=== PATIENT | male | born 1955 | race Caucasian/White ===

== ENCOUNTER 2021-09-13 07:42 | Outpatient (CLI) | payer BC, SELFPAY ==
[2021-09-13 11:26] LABS: Albumin* 4.1 g/dL (3.3-5.0); Chloride* 105 mmol/L (96-114); Potassium* 4.3 mmol/L (3.6-5.1); Sodium* 139 mmol/L (135-149)
[2021-09-13 11:28] LABS: Bilirubin Total* 0.5 mg/dL (0.1-1.5); Carbon Dioxide* 26 mmol/L (20-32); Cholesterol* 138 mg/dL (90-199); Creatinine* 1.1 mg/dL (0.5-1.5); Estimated Glomerular Filt Rate 74 ml/min
[2021-09-13 11:29] LABS: Alanine Aminotransferase* 14 U/L (4-50); Alkaline Phosphatase* 110 U/L (40-150); Aspartate Amino Transferase* 19 U/L (12-35); Blood Urea Nitrogen* 24 mg/dL (7-30); Calcium* 9.2 mg/dL (8.4-10.6); Glucose* 95 mg/dL (60-115); Total Protein* 6.8 g/dL (6.0-8.3); Triglycerides* 97 mg/dL (40-149)
[2021-09-13 11:30] LABS: HDL Cholesterol* 39 mg/dL (>=40)
[2021-09-13 11:40] LABS: LDL Cholesterol Calculated 80 mg/dL (<100)
[2021-09-13 12:00] LABS: PSA Screen* 3.45 ng/mL (0.10-4.00)
== END 2021-09-13 07:43 | disposition home or self-care (01) ==
LOC: NFLDREF 07:43
PROVIDERS: PCP Internal Medicine; Visit Provider Internal Medicine
DX: Z00.00 Encounter for general adult medical examination without abnormal findings (principal); D64.9 Anemia, unspecified; Z12.5 Encounter for screening for malignant neoplasm of prostate; Z13.6 Encounter for screening for cardiovascular disorders
CPT/HCPCS: 80053; 80061; 84153

== ENCOUNTER 2022-02-14 08:48 | Outpatient (CLI) | payer MEDICARE, BC, SELFPAY ==
[2022-02-14 12:36] LABS: Albumin* 4.3 g/dL (3.3-5.0); Chloride* 108 mmol/L (96-114)
[2022-02-14 12:37] LABS: Potassium* 4.1 mmol/L (3.6-5.1); Sodium* 143 mmol/L (135-149)
[2022-02-14 12:39] LABS: Aspartate Amino Transferase* 21 U/L (12-35); Bilirubin Total* 0.6 mg/dL (0.1-1.5); Carbon Dioxide* 29 mmol/L (20-32); Creatinine* 0.9 mg/dL (0.5-1.5); Estimated Glomerular Filt Rate 93 ml/min
[2022-02-14 12:40] LABS: Alanine Aminotransferase* 22 U/L (4-50); Alkaline Phosphatase* 90 U/L (40-150); Blood Urea Nitrogen* 17 mg/dL (7-30); Calcium* 9.7 mg/dL (8.4-10.6); Glucose* 86 mg/dL (60-115)
[2022-02-14 13:11] LABS: PSA Screen* 3.52 ng/mL (0.10-4.00)
== END 2022-02-14 08:49 | disposition home or self-care (01) ==
PROVIDERS: PCP Internal Medicine; Visit Provider Internal Medicine
DX: D64.9 Anemia, unspecified (principal); Z12.5 Encounter for screening for malignant neoplasm of prostate
CPT/HCPCS: 80053; 84153

== ENCOUNTER 2022-04-20 14:45 | Outpatient (CLI) | payer MEDICARE, BC, SELFPAY | END 2022-04-20 14:46 | disposition home or self-care (01) | LOC: NFLDREF 14:46 | PROVIDERS: PCP Internal Medicine; Visit Provider Internal Medicine | DX: D64.9 Anemia, unspecified (principal) | CPT/HCPCS: 82607; 82728; 83540; 83550; 85045 ==

== ENCOUNTER 2022-08-26 08:56 | Outpatient (CLI) | payer MEDICARE, BC, SELFPAY ==
--- NOTE | 2022-08-26 06:46 | W.ANESCHARGE ---
Anesthesia Charges Start Date/Time Anesthesia Start Date: 08/26/22 Anesthesia Start Time: 09:34 Stop Date/Time Anesthesia Stop Date: 08/26/22 Anesthesia Stop Time: 10:09
--- NOTE | 2022-08-26 10:12 | W.ANESCHARGE ---
Anesthesia Charges Start Date/Time Anesthesia Start Date: 08/26/22 Anesthesia Start Time: 09:34 Stop Date/Time Anesthesia Stop Date: 08/26/22 Anesthesia Stop Time: 10:09
== END 2022-08-26 08:57 | disposition home or self-care (01) ==
LOC: OP CLINIC 08:56
PROVIDERS: PCP Internal Medicine; Visit Provider Internal Medicine
DX: D50.9 Iron deficiency anemia, unspecified (principal); K62.1 Rectal polyp
CPT/HCPCS: 43239; 45380; 813; 88305; J2704

== ENCOUNTER 2022-09-12 08:38 | Outpatient (CLI) | payer MEDICARE, BC, SELFPAY | END 2022-09-12 08:39 | disposition home or self-care (01) | PROVIDERS: PCP Internal Medicine; Visit Provider Internal Medicine | DX: D64.9 Anemia, unspecified (principal) | CPT/HCPCS: 82728; 83540 ==

== ENCOUNTER 2022-10-04 11:15 | Outpatient (RCR) | payer MEDICARE, BC, SELFPAY | END 2022-11-14 09:10 | disposition home or self-care (01) | PROVIDERS: PCP Internal Medicine; Visit Provider Internal Medicine | DX: M54.2 Cervicalgia (principal); M25.60 Stiffness of unspecified joint, not elsewhere classified; R53.1 Weakness; Z51.89 Encounter for other specified aftercare | CPT/HCPCS: 00813; 43239; 45380; 80061; 88305; 97110; 97140; 97162; J2704 ==

== ENCOUNTER 2023-09-18 07:55 | Outpatient (CLI) | payer MEDICARE, BC, SELFPAY ==
--- OUTSIDE RECORDS SUMMARY | 2023-09-22 01:12 | XMS_ITS ---
Author Organization [facility] [place] [address] Care Team Providers Care Fire Fighter [employer] Name Role Phone Unavailable Unavailable Unavailable Surgery Details Not on file Complications Check Surgery Details section. Procedure Estimated Blood Loss Check Surgery Details section. Procedure Findings Check Surgery Details section. Procedure Specimens Taken Check Surgery Details section.
--- OUTSIDE RECORDS SUMMARY | 2023-09-22 01:12 | XMS_ITS | Clinical Summary ---
Author Organization [facility] Address [address] [place] [address] Care Team Providers Care Stock Counter Name Role Phone Unavailable Primary Care Provider Unavailabl e Source Comments Patient records contain information from all sites at [facility]. For routine questions regarding patient records, call [phone] during business hours, M-F 8:00 AM - 5:00 PM Central Time. Record requests for emergency care only can be directed to [phone] at any time.[facility] Medications Medication Sig Dispensed Refills Start Date End Date Status hydrocortisone (HYTONE) 2.5 % creamIndications:D ermatitis Seborrheic Apply 1 Application topically 2 (two) times a day as needed (Rash). Apply to face mixed with ketoconazole up to twice daily x 2 weeks. 30 g 3 04/18/2023 Active ketoconazole (NIZORAL) 2 % creamIndications:D ermatitis Seborrheic Apply 1 Application topically 2 (two) times a day. Apply to face mixed with Hydrocortisone twice daily x 2 weeks 30 g 3 04/18/2023 Active ketoconazole (NIZORAL) 2 % shampooIndications :Dermatitis Seborrheic Apply 1 Application topically 2 (two) times a week. Apply to damp skin, lather, leave on 5 minutes, and rinse. Can alternate with selsun blue every other time you rinse your hair. 120 mL 11 04/20/2023 Active fluocinonide (LIDEX) 0.05 % external solutionIndication s:Dermatitis Seborrheic Apply 1 Application topically 2 (two) times a day as needed for rash. Apply to scalp as needed for itching up to twice daily. 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 No 04/17/2023 Exercise Vital Sign Answer Date Recorde d On average, how many days pe r week do you engage in moderate to strenuous exercise (like a brisk walk)? 5 days 04/17/2023 On average, how many minutes do you engage in exercise at this level? 50 min 04/17/2023 Hunger Vital Sign Answer Date Recorded Within the past 12 months, y ou worried that your food would run out before you got the money to buy more. Never true 04/17/19 Within the past 12 months, t he food you bought just didn't last and you didn't have money to get more. Never true 04/17/2023 PRAPARE - Transportation Answer Date Re corded In the past 12 months, has l ack of transportation kept you from medical appointments or from getting medications? No 04/06 In the past 12 months, has l ack of transportation kept you from meetings, work, or from getting things needed for daily living? No 04/17/2023 Nutrition Answer Date Recorded Nutrition: EVOO Fat Source Unknown 04/16 On average, how many serving s of fruits and vegetables do you eat per day (serving size is equal to 1 cup or approximately the size of a tennis ball)? 0-2 04/17/2023 Dental Answer Date Recorded Dental: Regular Dentist Yes 04/17/19 Employment Answer Date Recorded Employment status Retired 04/17/2023 Housing Stability Answer Date Recorded What is your living situation today? I have a [facility] place to live 04/17/2023 Sex and Gender Information Value Date Recorded Sex Assigned at Male 04/16/2023 2:17 PM CDT Gender Identity Male 04/16/2023 2:17 PM CDT Sexual Orientation Straight 04/16/2023 2: 17 PM CDT Plan of Treatment Health Maintenance Due Date Last Done Comments CT Colonography 1955 Cologuard 1955 FIT 1955 Hepatitis C Screening 1955 Colonoscopy 06/15/2014 06/15/2004 Colorectal Cancer Screening 06/15/2014 Pneumococcal vaccine (65+ ye ars) (1 of 1 - PCV) 2018 COVID-19 Vaccine (3 - 2022-2 4 season) 2022 03/02/2021, 08/07/2020 Depression Screening (Annual PHQ-2) 02/06/2023 Fall Risk Screen (Annual) 02/06/2023 Influenza Vaccine (#1) 2023 , 11/13/2013, 11/12/2012, Additional history exists Fasting Glucose for Diabetes Screening 11/17/2025 11/17/2022, 03/01/2022, 02/14/2022, Additional history exists DTaP,Tdap,and Td Vaccines (3 - Td or Tdap) 05/15/2030 05/15/2020, 01/09/2009, 02/06/1997 Zoster Vaccines Completed 03/22/2019, 01/06, 09/22/2016 Advance Directives For more information, please contact: [phone] Documents on File Type Date Recorded 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
--- OUTSIDE RECORDS SUMMARY | 2023-09-22 01:12 | XMS_ITS | Referral Summary ---
Author Organization [facility] Address [address] [place] [address] Care Team Providers Care Writing Center Director Name Role Phone Unavailable Primary Care Provider Unavailabl e Source Comments Patient records contain information from all sites at [facility]. For routine questions regarding patient records, call [phone] during business hours, M-F 8:00 AM - 5:00 PM Central Time. Record requests for emergency care only can be directed to [phone] at any time.[facility] Medications Medication Sig Dispensed Refills Start Date [...] Years Used Date Smoking Tobacco: Never Assessed [facility] Utilities Answer Date Recorded In the past [...] your living situation today? 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
--- OUTSIDE RECORDS SUMMARY | 2023-09-22 01:13 | XMS_ITS | Clinical Summary ---
Author Organization [facility] Address [place], [place] [address] Care Team Providers Care Reconnaissance Man Name Role Phone John Garcia MD Primary Care Provider Corinne Moran Unavailable Mj Dykes MD Unavailable + [phone] Allergies Active Allergy Reactions Criticality Noted Date Comments Unlisted Allergen (Include Detail In Comments) Shortness Of Breath 07/15/2020 [place] Medications Medication Sig Dispensed Refills Start Date End Date Status albuterol HFA (PRO-AIR; VENTOLIN; PROVENTIL) 90 mcg/actuation inhaler Inhale 1-2 Puffs by mouth every 6 hours if needed (for allergy symptoms). 05/13/2020 Active betamethasone dipropionate 0.05% (DIPROSONE LOTION 0.05%) lotion Apply topically to affected area(s) every Monday. 12/02/2019 Active ketoconazole 2% shampoo (NIZORAL) 2 % shampoo Apply topically to affected area(s) every Monday. 12/02/2019 Active acetaminophen (TYLENOL) 325 mg tabletIndications: Cerebrovascular accident (CVA), unspecified mechanism (HC) Take 2 Tablets (650 mg) by mouth every 4 hours if needed for Pain (For mild pain.). Max acetaminophen dose: 4000mg in 24 hrs. 0 04/30/2021 Active atorvastatin (LIPITOR) 20 mg tabletIndications: Cerebrovascular accident (CVA), unspecified mechanism (HC) Take 1 Tablet (20 mg) by mouth at bedtime. 30 Tablet 04/30/2021 Active pantoprazole (PROTONIX) 40 mg delayed-release tabletIndications: Gastroesophageal reflux disease, unspecified whether esophagitis present Take 1 Tablet (40 mg) by mouth once daily before a meal. 30 Tablet 05/01/2021 Active digoxin (LANOXIN) 250 mcg (0.25 mg) tablet Take 250 mcg by mouth once daily. 05/15/2021 Active apixaban (Eliquis) 5 mg tabletIndications: PAF (paroxysmal atrial fibrillation) (HC),Cerebrovascul ar accident (CVA), unspecified mechanism (HC) Take 1 Tablet (5 mg) by mouth two times daily. 180 Tablet 3 08/03/2022 Active Active Problems Problem Noted Date Diagnosed Date PAF (paroxysmal atrial fibrillation) 04/29/2021 Acute CVA (cerebrovascular accident) 04/27/2021 Social History Tobacco Use Types Packs/Day Years Used Date Smoking Tobacco: Former Cigarettes 1 10 1 977 - 1986 Smokeless Tobacco: Never Tobacco Cessation:Counseling Given: Not Answered Alcohol Use Standard Drinks/Week Comments Not Currently 0 (1 standard drink = 0.6 oz pur e alcohol) Social Connections Answer Date Recorded Frequency of Communication with Friends and Fami ly Not on file 05/17/2021 Sex and Gender Information Value Date Recorded Sex Assigned at Not on file Gender Identity Not on file Sexual Orientation Not on file Obstetrics History Last Filed Vital Signs Vital Sign Reading Time Taken Comments Blood Pressure 122/64 11/17/2022 3:37 PM CDT Pulse 53 11/17/2022 3:37 PM CDT Temperature 35.7 ??C (96.2 ??F) 07/09/2021 1:00 PM CD T Respiratory Rate 13 11/17/2022 3:37 PM CDT Oxygen Saturation 96% 11/17/2022 3:37 PM CDT Inhaled Oxygen Concentration - - Weight 77.6 kg (171 lb) 11/17/2022 3:37 PM CDT Height 180.3 cm (5' 11) 11/17/2022 3:37 PM CDT Body Mass Index 23.85 11/17/2022 3:37 PM CDT Plan of Treatment Upcoming Encounters Date Type Department Care Team (Late st Contact Info) Description 09/29/2023 8:00 AM CDT Office Visit [facility] [address] [place] [address] [place] [address] [place] [address] Health Maintenance Due Date Last Done Comments Tdap 1964 Depression screening for age 12+ 1965 Hepatitis C screening for ag e 18-79 12/10/1971 Tetanus booster 1973 Colonoscopy through age 75 1998 Zoster (shingles) series for age 50+ (1 of 2) 12/10/2003 Medicare Wellness for age 65+ 2018 Pneumococcal series for age 65+ (1 of 1 - PCV) 2018 COVID-19 vaccine series ( season) 2022 03/02/2021, 08/07/2020 Influenza for age 65+ 10/08/2023 BMI (ht and wt on same day) for age 18+ 11/18/2023 11/17/2022, 08/03/2022, 10/01/2021, Additional history exists Lipids for age 45-75 04/28/2026 04/28/2021 AAA screening age 65-74 Completed 07/28/2021 Procedures Procedure Name Priority Date/Time Associated Diagnosis Comments US ABD AORTA SCREENING Routine 07/28/2021 9:58 AM CDT Screening for AAA (abdominal aortic aneurysm) LIPID PANEL Early AM 04/28/2021 3:47 AM CDT from Last 3 Months or Most Recently Relevant to Health Maintenance Results * US ABD AORTA SCREENING (07/28/2021 9:58 AM CDT) Anatomical Region Laterality Modality Abdomen, AORTA Ultrasound 07/28/2021 9:45 AM CDT Narrative 07/28/2021 10:49 AM CDT VASCULAR ULTRASOUND REPORT [facility] Accession#: ?? [id number] : ?1955 ??Study Date: ?? 07/28/2021 9:45:46 AM Age: ?65 years ?? Tech: ? LMS Gender: M ?Referring MD: CORINNE MORAN Site: [facility] Study performed: ?Aorta Indication for study: AAA screening. TECHNIQUE: The abdominal aorta and iliac arteries were examined with duplex ultrasound, color-flow and spectral Doppler. Bypass grafts and/or stents if present are evaluated per exam protocol. Vessel size, peak systolic velocity (PSV) and velocity ratios if applicable, were obtained and documented at sites per exam protocol. IMPRESSION: 1. No evidence of abdominal aortic aneurysm. 2. No evidence of iliac artery aneurysm or stenosis. COMPARISON: No prior study available for comparison. FINDINGS: There is no evidence of abdominal aortic aneurysm. IVC patent. MEASUREMENTS: + +--------+-------+ +---------+ ? TRV (cm) AP (cm) PSV (cm/s) Phasicity + +--------+-------+ +---------+ Suprarenal aorta ?2.50 ?? 2.40 ? 103 ? + +--------+-------+ +---------+ Juxtarenal aorta ?1.90 ?? 1.90 ? 126 ? + +--------+-------+ +---------+ Infrarenal aorta ?1.80 ?? 1.80 ? 125 ? + +--------+-------+ +---------+ Right common iliac ??1.30 ?? 1.30 ? 178 ? + +--------+-------+ +---------+ Left common iliac ??1.20 ?? 1.20 ? 146 ? + +--------+-------+ +---------+ Óscar Sebastian MD. Electronically signed on 07/28/2021 10:49:33 AM This study was performed and interpreted by a service accredited by the Intersocietal Accreditation Commission (IAC/Vascular), [email or web address].org/vascular Report generated by [email or web address]. ??Final ?? Procedure Note Óscar Sebastian MD - 07/28/2021 VASCULAR ULTRASOUND REPORT [facility] : 1955 Study Date: 07/28/2021 9:45:46 AM Age: 65 years Tech: LMS Gender: M Referring MD: CORINNE MORAN Site: [facility] Study performed: Aorta Indication for study: AAA screening. TECHNIQUE: The abdominal aorta and iliac arteries were examined with duplexultrasound, color-flow and spectral Doppler. Bypass grafts and/or stentsif present are evaluated per exam protocol. Vessel size, peak systolicvelocity (PSV) and velocity ratios if applicable, were obtained anddocumented at sites per exam protocol. IMPRESSION: 1. No evidence of abdominal aortic aneurysm. 2. No evidence of iliac artery aneurysm or stenosis. COMPARISON: No prior study available for comparison. FINDINGS: There is no evidence of abdominal aortic aneurysm. IVC patent. MEASUREMENTS: + +--------+-------+ +---------+ TRV (cm) AP (cm) PSV (cm/s) Phasicity + +--------+-------+ +---------+ Suprarenal aorta 2.50 2.40 103 + +--------+-------+ +---------+ Juxtarenal aorta 1.90 1.90 126 + +--------+-------+ +---------+ Infrarenal aorta 1.80 1.80 125 + +--------+-------+ +---------+ Right common iliac 1.30 1.30 178 + +--------+-------+ +---------+ Left common iliac 1.20 1.20 146 + +--------+-------+ +---------+ Óscar Sebastian MD. Electronically signed on 07/28/2021 10:49:33 AM This study was performed and interpreted by a service accredited by theIntersocietal Accreditation Commission (IAC/Vascular),[email or web address] Report generated by [email or web address]. Final Corinne FAY * Lipid Panel (04/28/2021 3:47 AM CDT) [facility] CHOLESTEROL,TOTAL 181 100 - 199 mg/dL 04/28/2021 4:37 AM CDT [facility] TRIGLYCERIDES 59 <150 mg/dL 04/28/2021 4:37 AM CDT [facility] HDL CHOLESTEROL 43 >40 mg/dL 4:37 AM CDT [facility] NON-HDL CHOLESTEROL 138 <145 mg/dl 04/28/2021 4:37 AM T [facility] CHOL/HDL RATIO 4.21 <4.50 04/28/2021 4:37 AM CDT [facility] LDL CHOLESTEROL 126 <=130 mg/dL 04/28/2021 4:37 AM CDT [facility] VLDL CHOLESTEROL 12 <=30 mg/dL 04/28/2021 4:37 AM CDT [facility] PROVIDER ORDERED STATUS RANDOM 04/28/2021 4:37 AM CDT [facility] Blood BLOOD SPECIMEN / Unknown Venipuncture / Unknown 04/28/2021 3:47 AM CDT 04/28/2021 4:03 AM CDT Papi Patel MD CHEMISTRY [facility] [place]OUT [place] [address]IP [address] [address] [place] [address] from Last 3 Months or Most Recently Relevant to Health Maintenance Advance Directives * Full Code (Latest Code Status on File) Date Activated Date Inactivated Comments 04/27/2021 9:02 PM 04/30/2021 1:27 PM Question Answer Comments Code Status Discussion: Reviewed Preferences Care Teams Reconnaissance Man Relationship Specialty Start Date End Date John Garcia MD [address] [place] [address] PCP - General Internal Medicine 06/17/20 Corinne Moran PA [address] [place] [address] Physician's Machine Tender Cardiology - Electrophysiology 07/08/21 Mj Dykes MD [address] [facility] [address] [place] [address] Cardiology - EP Cardiovascular Disease 09/20/21
--- OUTSIDE RECORDS SUMMARY | 2023-09-22 01:13 | XMS_ITS | Referral Summary ---
Author Organization [facility] Address [address] [place] [address] Care Team Providers Care Signs And Displays Sales Representative Name Role Phone John Garcia MD Primary Care Provider Allergies Active Allergy Reactions Criticality Noted Date Comments Trees 05/27/2002 CEDAR DUST Medications Medication Sig Dispensed Refills Start Date End Date Status ALBUTEROL 90 MCG/ACT IN AERS 2 puffs every 4 hours as needed 1 12 06/14/2006 Active VIAGRA 100 MG OR TABS 1 TABLET DAILY NEEDED 15 1 year 06/14/2006 Active apixaban ANTICOAGULANT (ELIQUIS) 5 MG tablet Take 1 tablet by mouth 2 times daily 06/03/2021 Active digoxin (LANOXIN) 250 MCG tablet Take 250 mcg by mouth daily 05/15/2021 Active atorvastatin (LIPITOR) 20 MG tablet Take 1 tablet by mouth At Bedtime 04/30/2021 Active pantoprazole (PROTONIX) 40 MG EC tablet Take 40 mg by mouth daily 05/01/2021 Active acetaminophen (TYLENOL) 325 MG tablet Take 650 mg by mouth every 6 hours as needed 04/30/2021 Active Multiple Vitamin (ONE-A-DAY ESSENTIAL) TABS Take 1 tablet by mouth daily 10/01/2021 Active senna-docusate (SENOKOT-S/PERICOLA CE) 8.6-50 MG tabletIndications:S /P total knee arthroplasty, right Take 1-2 tablets by mouth 2 times daily Take while on oral narcotics to prevent or treat constipation. 30 tablet 02/28/2022 Active polyethylene glycol (MIRALAX) 17 g packetIndications:S /P total knee arthroplasty, right Take 17 g by mouth daily 10 packet 02/28/2022 Active acetaminophen (TYLENOL) 325 MG tabletIndications:S /P total knee arthroplasty, right Take 2 tablets (650 mg) by mouth every 4 hours as needed for other (mild pain) May use regular strength (325mg) acetaminophen over the counter medication when Rx runs out. 100 tablet 02/28/2022 Active oxyCODONE (ROXICODONE) 5 MG tabletIndications:S /P total knee arthroplasty, right Take 1-2 tablets (5-10 mg) by mouth every 4 hours as needed for moderate to severe pain or severe pain (7-10) Begin weaning on POD3 30 tablet 02/28/2022 Active hydrOXYzine (ATARAX) 10 MG tabletIndications:S /P total knee arthroplasty, right Take 1 tablet (10 mg) by mouth every 6 hours as needed for itching or anxiety (with pain, moderate pain) 30 tablet 02/28/2022 Active betamethasone dipropionate (DIPROSONE) 0.05 % external lotion APPLY THIN LAYER TO AFFECTED AREA ON SCALP 1-2X DAILY FOR 2 WEEKS , TAKE 2 WEEK BREAK THEN NEEDED 02/18/2022 Active hydrocortisone 2.5 % ointment APPLY TO AFFECTED AREA ON EYEBROWS TWICE A DAY FOR 2 WEEKS THEN REPEAT NEEDED FOR FLARES 10/21/2021 Active Active Problems Problem Noted Date Diagnosed Date Iatrogenic pulmonary embolism and infarction Intracranial injury of other and unspecified nature, without mention of open intracranial wound, loss of consciousness of unspecified duration 05/24/2002 Overview: brain injury, closed head injury, 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 This was complicated by a pulmonary embolism while he was in the hospital and also atrial fibrillation felt related to the stress of the pulmonary embolism and the closed head injury. Immunizations Name Administration Dates Next Due Influenza (IIV3) PF 12/26/2002 TD,PF 7+ (Tenivac) 02/06/1997 Social History Tobacco Use Types Packs/Day Years Used Date Smoking Tobacco: Former Cigarettes Q uit: 1986 Smokeless Tobacco: Never Tobacco Cessation:Counseling Given: Not Answered Comments:quit 16 years [id number] Alcohol Use Standard Drinks/Week Comments Yes 0 (1 standard drink = 0.6 oz pur e alcohol) seldom Adolescent Education Answer Date Record ed Getting School Help Needed Not on file 11/22 Sex and Gender Information Value Date Recorded Sex Assigned at Not on file Gender Identity Not on file Sexual Orientation Not on file Last Filed Vital Signs Vital Sign Reading Time Taken Comments Blood Pressure 141/58 03/01/2022 7:31 AM [employer]NA[employer] Pulse 55 03/01/2022 7:31 AM [employer] Temperature 36.7 ??C (98.1 ??F) 03/01/2022 7:31 AM CS T Respiratory Rate 20 02/28/2022 11:5 8 PM [employer] Oxygen Saturation 97% 03/01/2022 7:31 AM [employer] Inhaled Oxygen Concentration - - Weight 72.5 kg (159 lb 12.8 oz) 02/28/2022 7:59 AM [employer] Height 180.3 cm (5' 11) 02/28/2022 7:59 AM [employer] Body Mass Index 22.29 02/28/2022 7:59 AM [employer] Plan of Treatment Not on file Goals Goal Patient Goal Type Associated Problems Recent Progress Patient-Stated? Author Total Joint Replacement Hip Pathway Care Plan Total Joint Replacement Hip Pathway No Santosh Lawson, RN Medical Devices Implanted Type Area Well Puller Device Identifier Shelf Expiration Date Model / Serial / Lot Bone Cement Simplex Full Dose 6191-1-001 - [id number] Implanted:Qty: 1 on 02/28/2022 by Malachi Serna MD at [facility] Cement, Bone Right: Knee [employer] 07/06/2024 6191-1-001 / / [id number] Imp Tibial Zim Psn Building Drafter Stm 5deg Sz Gr [id number] - [id number] Implanted:Qty: 1 on 02/28/2022 by Malachi Serna MD at [facility] Total Joint Component /Insert Right: Knee [employer] 07/12/2031 42-5320-07 10-08 / [id number] Imp Comp Fem Zim Psn Ps Cmt Std Sz 9 Rt 78-4643-521-02 - [id number] Implanted:Qty: 1 on 02/28/2022 by Malachi Serna MD at [facility] Total Joint Component /Insert Right: Knee [employer] 08/14/2031 42-5006-06 6- / [id number] Imp Patella Zim Knee All Diana 35mm 02-0814-972-35 - [id number] Implanted:Qty: 1 on 02/28/2022 by Malachi Serna MD at [facility] Total Joint Component /Insert Right: Knee [employer] 11/30/2026 42-5400-00 0- [id number] Imp Art Surface Zim Psn Ps 10mm Rt Sz 6-9 Gh 45-7075-357-10 - [id number] Implanted:Qty: 1 on 02/28/2022 by Malachi Serna MD at [facility] Total Joint Component /Insert Right: Knee [employer] 06/05/2026 42-5214-00 9 [id number] Procedures Procedure Name Priority Date/Time Associated Diagnosis Comments GLUCOSE Routine 03/01/2022 6:24 AM [employer] ZZ[facility] COLONOSCOPY THRU STOMA, DIAGNOSTIC Routine 06/15/2004 Routine Medical Exam Screening Mal Neop-Prostate Screening Mal Neop-Colon Screening-Diabetes Mellitus Screening-Lipoid Disorders CL AFF A.M.A. LIPID PANEL Routine 05/27/2004 9:25 AM CDT Routine Medical Exam Screening Mal Neop-Prostate Screening Mal Neop-Colon Screening-Diabetes Mellitus Screening-Lipoid Disorders from Last 3 Months or Most Recently Relevant to Health Maintenance Results * (ABNORMAL) Glucose (03/01/2022 6:24 AM ANA[employer]) Glucose 115(H) 70 - 99 mg/dL 03/01/2022 7:19 AM [employer] [facility] Patient Fasting > 8hrs? No 03/01/2022 7:19 AM [employer] [facility] Blood STRUCTURE OF RIGHT UPPER LIMB / Unknown Venipuncture / Unknown 03/01/2022 6:24 AM [employer] 03/01/2022 6:54 AM [employer]NA[employer] Malachi Serna MD LAB - BLOOD JEAN-CLAUDE ARMENTA Performing Organization Address [facility]/ZIP Co de Phone Number [facility] Acute Care Lab [address] Lab (1st floor, no room number) [place] [address], [facility] [phone] * Colonoscopy (06/15/2004) Hill Ames MD PROCEDURES Performing Organization Address [facility] Co de Phone Number [facility] [place] [address] * (ABNORMAL) A.M.A. LIPID PANEL (05/27/2004 9:25 AM CDT) [facility] Signature Cholesterol 230(H) 0 - 200 mg/dL [facility] Comment: Cholesterol Reference Range: <200 ??The NCEP recommends further ? evaluation of: ? 1. ??Patients with cholesterol ? greater than 200 mg/dL ? if additional risk factors ? are present. ? 2. ??All patients with a ? cholesterol greater than ? 240 mg/dL. Triglycerides 240(H) 0 - 150 mg/dL [facility] HDL Cholesterol 41 >40 mg/dL [facility] LDL Cholesterol Calculated 141(H) 0 - 129 mg/dL [facility] VLDL-Cholesterol 48(H) 0 - 30 mg/dL [facility] Cholesterol/HDL Ratio 5.6(H) 0.0 - 5.0 [facility] 05/27/2004 9:25 AM CDT 05/27/2004 9:27 AM CDT Hill Ames MD LABORATORY Performing Organization Address [facility] de Phone [facility] [place] [address] from Last 3 Months or Most Recently Relevant to Health Maintenance Additional Health Concerns Active Problems Noted Date Diagnosed Date Total Joint Replacement Hip Pathway 02/22/2022 Advance Directives For more information, please contact: [phone] Documents on File Type Date Recorded Patient Appeals Coordinator Expl anation Advance Directives and Living Will 03/08/2022 Health Care Directiv e 11/05/2020 * Full Code (Latest Code Status on File) Date Activated Date Inactivated Comments 02/28/2022 5:52 PM 03/01/2022 1:44 PM All basic an d advanced life-sustaining interventions are performed as appropriate Question Answer Comments Code status determined by: Unable to dis cuss and no AD/POLST on file; continue PREVIOUSLY ORDERED code status Healthcare Agents on File Name Relationship Healthcare Agent Relationship Communication Luciano Blandon Brother First Alternate Health Care Agent [facility] Care Agent Jeffrey Alcalafiliberto [facility] Care Agent Care Teams Signs And Displays Sales Representative Relationship Specialty Start Date End Date John Garcia MD [facility] [address] [place] [address] PCP - General Emergency Medicine 02/28/22
--- OUTSIDE RECORDS SUMMARY | 2023-09-22 01:13 | XMS_ITS | Clinical Summary ---
Author Organization [facility] Address [address] [place] [address] Care Team Providers Care Water Team Leader Name Role Phone John Garcia MD Primary [...] (IIV3) PF 12/26/2002 TD,PF 7+ (Tenivac) 02/06/1997 Family History Medical History Relation Comments Eye Disorder Father CATARACT, MACULA R DEGENERATION Respiratory Father Cerebrovascular Disease Mother Diabetes Mother Hypertension Mother Prostate Cancer Other paternal uncle Breast Cancer No family hx of C.A.D. No family hx of Cancer No family hx of Cancer - colorectal No family hx of Heart Disease No family hx of Lipids No family hx of Thyroid Disease No family hx of Relation Status Comments Brother Alive Father Alive Mother Alive Other Sister Alive Social History Tobacco Use Types Packs/Day Years Used Date Smoking Tobacco: Former Cigarettes Q uit: 1986 Smokeless Tobacco: Never Tobacco Cessation:Counseling Given: Not Answered Comments:quit 16 years [id number] Alcohol Use Standard Drinks/Week Comments Yes 0 [...] Comments Blood Pressure 141/58 03/01/2022 7:31 AM SUPERVIS[employer]ING [employer] PASTING Pulse 55 03/01/2022 7:31 AM [employer] PASTING Temperature 36.7 ??C (98.1 ??F) 03/01/2022 7:31 AM CS T Respiratory Rate 20 02/28/2022 11:5 8 PM [employer]STING Oxygen Saturation 97% 03/01/2022 7:31 AM SUPER[employer] PASTING Inhaled Oxygen Concentration - - Weight 72.5 kg (159 lb 12.8 oz) 02/28/2022 7:59 AM SU[employer] PASTING Height 180.3 cm (5' 11) 02/28/2022 7:59 AM SU[employer]STING Body Mass Index 22.29 02/28/2022 7:59 AM [employer]PER[employer] PASTING Plan of Treatment Health Maintenance Due Date Last Done Comments ANNUAL REVIEW OF HM ORDERS 1955 CT COLONOGRAPHY 1955 FIT 1955 FLEX SIG 1955 sDNA (Cologuard) 1955 HEPATITIS C SCREENING 12/10/1971 LUNG CANCER SCREENING 12/10/2003 LIPID 05/27/2005 05/27/2004 COLONOSCOPY 06/16/2007 06/15/2004 COLORECTAL CANCER SCREENING 06/16/2007 RSV VACCINE ( & 60+) (1 - 1-dose 60+ series) 2013 FALL RISK ASSESSMENT 2018 MEDICARE ANNUAL WELLNESS VISIT 2018 06/14/2006, 05/27/2004 Pneumococcal Vaccine: 65+ Years (1 of 1 - PCV) 2018 COVID-19 Vaccine ( season) 2022 03/02/2021, 08/07/2020 PHQ-2 (once per calendar year) 2023 INFLUENZA VACCINE (#1) 2023 2, 11/13/2013, 11/13/2013, Additional history exists GLUCOSE 03/01/2025 03/01/2022, 10/2022, 05/27/2004, Additional history exists ADVANCE CARE PLANNING 03/08/2027 03/08/2022 DTAP/TDAP/TD IMMUNIZATION (3 - Td or Tdap) 05/15/2030 05/15/2020, 01/09/2009, 02/06/1997 ZOSTER IMMUNIZATION Completed 03/22/2019, 01/16/2019, 09/22/2016 HPV IMMUNIZATION Aged Out No longer e ligible based on patient's age to complete this topic IPV IMMUNIZATION Aged Out No longer e ligible based on patient's age to complete this topic MENINGITIS IMMUNIZATION Aged Out No l onger eligible based on patient's age to complete this topic RSV MONOCLONAL ANTIBODY Aged Out No l onger eligible based on patient's age to complete this topic Goals Goal Patient Goal Type Associated Problems Recent Progress Patient-Stated? Author Total Joint Replacement Hip Pathway Care Plan Total Joint Replacement Hip Pathway No Santosh Lawson, RN Medical Devices Implanted Type Area Drying Room Supervisor Device Identifier Shelf Expiration Date Model / Serial / Lot Bone Cement Simplex Full Dose 6191-1-001 - [id number] Implanted:Qty: 1 on 02/28/2022 by Malachi Serna MD at [facility] Cement, Bone Right: Knee [employer] 07/06/2024 6191-1-001 / / [id number] Imp Tibial Zim Psn Parts Facilitator Stm 5deg Sz Gr 28-6786-475-02 - [id number] Implanted:Qty: 1 on 02/28/2022 by Malachi Serna MD at [facility] Total Joint Component /Insert Right: Knee [employer] 07/12/2031 42-5320-07 9- / / [id number] Imp Comp Fem Zim Psn Ps Cmt Std Sz 9 Rt 01-9059-521-02 - [id number] Implanted:Qty: 1 on 02/28/2022 by Malachi Serna MD at [facility] Total Joint Component /Insert Right: Knee [employer] 08/14/2031 42-5006-06 6- / [id number] Imp Patella Zim Knee All Diana 35mm 64-8103-061-35 - [id number] Implanted:Qty: 1 on 02/28/2022 by Malachi Serna MD at [facility] Total Joint Component /Insert Right: Knee [employer] 11/30/2026 42-5400-00 0-35 / / [id number] Imp Art Surface Zim Psn Ps 10mm Rt Sz 6-9 75-1237-025-10 - [id number] Implanted:Qty: 1 on 02/28/2022 by Malachi Serna MD at [facility] Total Joint Component /Insert Right: Knee [employer] 06/05/2026 42-5214-00 9- [id number] Procedures Procedure Name Priority Date/Time Associated Diagnosis Comments GLUCOSE Routine 03/01/2022 6:24 AM SUPERVISOR [employer]FFING [employer] PASTING ZZHC COLONOSCOPY THRU STOMA, DIAGNOSTIC Routine 06/15/2004 Routine Medical Exam Screening Mal Neop-Prostate Screening Mal Neop-Colon Screening-Diabetes Mellitus Screening-Lipoid Disorders CL AFF A.M.A. LIPID PANEL Routine 05/27/2004 9:25 AM CDT Routine Medical Exam Screening Mal Neop-Prostate Screening Mal Neop-Colon Screening-Diabetes Mellitus Screening-Lipoid Disorders from Last 3 Months or Most Recently Relevant to Health Maintenance Results * (ABNORMAL) Glucose (03/01/2022 6:24 AM SUPER[employer] PASTING) Glucose 115(H) 70 - 99 mg/dL 03/01/2022 7:19 AM SUPER[employer]FFING [employer] PAST[employer] [facility] Patient Fasting > 8hrs? No 03/01/2022 7:19 AM SUPER[employer]ING [employer] PAST[employer] [facility] Blood STRUCTURE OF RIGHT UPPER LIMB / Unknown Venipuncture / Unknown 03/01/2022 6:24 AM SU[employer] PASTING 03/01/2022 6:54 AM SUPERVIS[employer]FFING [employer] PASTING Malachi eSrna MD LAB - BLOOD JEAN-CLAUDE ARMENTA Performing Organization Address [facility] Co de Phone Number [facility] Acute Care Lab [address] Lab (1st floor, no room number) [place] [address], [place] [phone] * Colonoscopy (06/15/2004) Hill Ames MD PROCEDURES Performing Organization Address [facility] Co de Phone Number [facility] [place] [place] [address] * (ABNORMAL) A.M.A. LIPID PANEL (05/27/2004 9:25 AM CDT) [facility] Cholesterol 230(H) 0 - 200 mg/dL [facility] Comment: Cholesterol Reference Range: <200 ??The NCEP recommends further ? evaluation of: ? 1. ??Patients with cholesterol ? greater than 200 mg/dL ? if additional risk factors ? are present. ? 2. ??All patients with a ? cholesterol greater than ? 240 mg/dL. Triglycerides 240(H) 0 - 150 mg/dL [facility] HDL Cholesterol 41 >40 mg/dL [facility] LDL Cholesterol Calculated 141(H) 0 - 129 mg/dL [facility] VLDL-Cholesterol 48(H) 0 - 30 mg/dL [facility] Cholesterol/HDL Ratio 5.6(H) 0.0 - 5.0 [facility] 05/27/2004 9:25 AM CDT 05/27/2004 9:27 AM CDT Hill Ames MD LABORATORY Performing Organization Address [facility] de Phone Number [facility] [place] [address] from Last 3 Months or Most Recently Relevant to Health Maintenance Additional Health Concerns Active Problems Noted Date Diagnosed Date Total Joint Replacement Hip Pathway 02/22/2022 Advance Directives For more information, please contact: [phone] Documents on File Type Date Recorded Patient Insurance Investigator Expl anation Advance Directives and Living Will [...] Brother First Alternate Health Care Agent Ellyn Blandon Health Care Agent Jeffrey Blandon Second Alternate Health Care Agent Care Teams Water Team Leader Relationship Specialty Start Date End Date John Garcia MD [facility] [address] [place] [address] PCP - General Emergency Medicine 02/28/22
== END 2023-09-18 07:56 | disposition home or self-care (01) ==
LOC: NFLDREF 09-22 01:11
PROVIDERS: PCP Internal Medicine; Referring Provider Internal Medicine; Visit Provider Internal Medicine
DX: E78.5 Hyperlipidemia, unspecified (principal); I95.1 Orthostatic hypotension; Z12.5 Encounter for screening for malignant neoplasm of prostate
CPT/HCPCS: 80053; 80061; G0103

== ENCOUNTER 2024-07-29 09:49 | Outpatient (CLI) | payer MEDICARE, BC, SELFPAY ==
--- NOTE | 2024-07-29 10:15 | CRLHL7_ITS ---
For Patients: As a result of the Century Cures Act, medical imaging exams and procedure reports are released immediately into your electronic medical record. You may view this report before your referring provider. If you have questions, please contact your health care provider. INDICATION: Low back pain. TECHNIQUE: Noncontrast sagittal and axial T1, T2, and sagittal STIR sequences are provided. No comparisons. FINDINGS: The overall stature, alignment and intrinsic marrow signal of the lumbar spine is within normal limits. Conus is normal. Multiple cysts seen within both kidneys likely representing simple renal cysts. L1-2: Trivial posterior disc bulge results in no central canal or foraminal narrowing. L2-3: Mild broad-based posterior disc bulge results in no significant central canal or foraminal narrowing. L3-4: Minor broad-based posterior disc bulge results in mild contact of the exiting L3 nerve roots bilaterally. No central canal narrowing. L4-5: Leftward eccentric disc bulge results in mild contact of the exiting left L4 nerve root. Minimal contact of the right exiting L4 nerve root. Moderate left lateral recess narrowing. Central canal is patent. L5-S1: Minor broad-based posterior disc bulge results in no central canal or foraminal narrowing. IMPRESSION: 1. Mild broad-based posterior disc bulge at L3-4 resulting in mild contact of the exiting L3 nerve roots bilaterally. 2. Leftward eccentric disc bulge and endplate osteophyte at L4-5 resulting in mild contact of the exiting left L4 nerve root with moderate left lateral recess narrowing and likely contact of the traversing left L5 nerve root. 3. Milder degenerative changes within the remainder of the lumbar spine as outlined above. Dictated by Jeff Saunders MD @ 07/29/2024 4:49:02 PM Prelim Report By Dr. Jeff Saunders @ 07/29/2024 4:51:59 PM ADDENDUM Dictated by: Jeff Saunders MD @ 07/31/2024 09:13:59 (Electronically Signed)
== END 2024-07-29 09:50 | disposition home or self-care (01) ==
LOC: MRI 09:50
PROVIDERS: PCP Internal Medicine; Visit Provider Internal Medicine
DX: M54.50 Low back pain, unspecified (principal); M51.26 Other intervertebral disc displacement, lumbar region
CPT/HCPCS: 72148

== ENCOUNTER 2024-10-11 07:44 | Outpatient (CLI) | payer MEDICARE, BC, SELFPAY | END 2024-10-11 07:45 | disposition home or self-care (01) | LOC: NFLDREF 10-16 10:18 | PROVIDERS: PCP Internal Medicine; Referring Provider Internal Medicine; Visit Provider Internal Medicine | DX: D64.9 Anemia, unspecified (principal); Z13.6 Encounter for screening for cardiovascular disorders; Z12.5 Encounter for screening for malignant neoplasm of prostate | CPT/HCPCS: 80053; 80061; G0103 ==

== ENCOUNTER 2024-12-16 00:14 | Emergency (ER) | payer MEDICARE, BC, SELFPAY ==
--- OUTSIDE RECORDS SUMMARY | 2024-11-28 10:09 | XMS_ITS ---
Office Visit Dx/Reason for visit after testing Need interp?/No Created on: November 28, 2024 Ha Mcmillan : 1955 Sex: Male Author Organization [facility] Address [address] [place] [address] , [facility] [address] [place] [address] Phone Care Team Providers Care Phonograph Needle Tip Maker Name Role Phone Elias Ratliff PA-C Conditions or Problems Problem Name Problem Code Onset Date Status Entry Date Provider Comment Standard Description Annotate Parkinsonism 63154846 (SNOMED CT) Active Elias Ratliff PA-C Parkinsonism Medications Medication Instructions Start Date Stop Date Generic Name NDC Provider KETOCONAZOLE 2 % SHAM Apply to skin once a week ketoconazole [id number] Elias Ratliff PA-C PANTOPRAZOLE SODIUM 40 MG TBEC Take 1 tablet by mouth once a day pantoprazole [id number] Elias Ratliff PA-C ALBUTEROL SULFATE HFA 108 (90 Base) MCG/ACT AERS Inhale 1-2 puff by mouth every six hours as needed albuterol sulfate 37729462535 Elias Ratliff PA-C ACETAMINOPHEN 325 MG TABS Take 2 tablet by mouth every four hours as needed acetaminophen 82614984335 Elias Ratliff PA-C ATORVASTATIN CALCIUM 20 MG TABS Take 1 tablet by mouth every night atorvastatin 49836027320 Elias Ratliff PA-C apixaban (Eliquis) 5 mg tablet Take 1 tablet by mouth twice a day Eliquis Elias Ratliff PA-C DIGOXIN 250 MCG TABS Take 250 mcg by mouth once a day digoxin 88460835733 Elias Ratliff PA-C DIGOXIN 250 MCG TABS Take 250 mcg by mouth once a day digoxin 94071623457 Elias Ratliff PA-C apixaban (Eliquis) 5 mg tablet Take 1 tablet by mouth twice a day Eliquis Elias [facility] KETOCONAZOLE 2 % SHAM Apply to skin once a week ketoconazole 24089528262 Elias [facility] apixaban (Eliquis) 5 mg tablet Take 1 tablet by mouth twice a day Eliquis Elias [facility] ACETAMINOPHEN 325 MG TABS Take 2 tablet by mouth every four hours as needed acetaminophen 79397713641 Elias [facility] apixaban (Eliquis) 5 mg tablet Take 1 tablet by mouth twice a day Eliquis Elias Ratliff PA-C BETAMETHASONE DIPROPIONATE 0.05 % LOTN Apply to skin once a week betamethasone dipropionate 76310905074 Elias [facility] BETAMETHASONE DIPROPIONATE 0.05 % LOTN Apply to skin once a week betamethasone dipropionate 63680748457 Elias Ratliff PA-C ALBUTEROL SULFATE HFA 108 (90 Base) MCG/ACT AERS Inhale 1-2 puff by mouth every six hours as needed albuterol sulfate 99292934653 Elias Ratliff PA-C PANTOPRAZOLE SODIUM 40 MG TBEC Take 1 tablet by mouth once a day pantoprazole 93345131491 Elias Ratliff PA-C ATORVASTATIN CALCIUM 20 MG TABS Take 1 tablet by mouth every night atorvastatin 90735383409 Elias Ratliff PA-C CARBIDOPA-LEVODO PA 25-100 MG TABS Take 1 tablet by mouth three times a day carbidopa-levodo pa 86989503040 Elias Ratliff PA-C Medications Administered No information available. Allergies, Adverse Reactions, Alerts No information available. Results No information available. Plan of Care Type Date Detail Appointment 01:40 PM Faustino See, [address] [facility], [address], [place], [address], Pending order Follow up Pending order Follow up Procedures Code Procedure Name Date Entry Date CPT-G2211 Complex e/m visit add on 202 06/15/22 Vital Signs Date Name Value Unit Description Height 70.98 [in_us] height E&M Immunizations No information available. Advance Directives No information available.
--- OUTSIDE RECORDS SUMMARY | 2024-11-28 10:09 | XMS_ITS ---
Office Visit Dx/Reason for visit after testing Need interp?/No Created on: November 28, 2024 Ha Mcmillan : 1955 Sex: Male Author Organization [facility] Address [address] [place] [address] , [facility] [address] [place] [address] Phone Care Team Providers Care Senior Account Clerk Name Role Phone Elias Ratliff PA-C Conditions or Problems Problem Name Problem Code Onset Date Status Entry Date Provider Comment Standard Description Annotate Parkinsonism 47029870 (SNOMED CT) Active Elias Ratliff PA-C Parkinsonism Medications Medication Instructions Start Date Stop Date Generic Name NDC Provider KETOCONAZOLE 2 % SHAM Apply to skin once a week ketoconazole 80498064830 Elias Ratliff PA-C PANTOPRAZOLE SODIUM 40 MG TBEC Take 1 tablet by mouth once a day pantoprazole 78820095544 Elias Ratliff PA-C ALBUTEROL SULFATE HFA 108 (90 Base) MCG/ACT AERS Inhale 1-2 puff by mouth every six hours as needed albuterol sulfate 30195485698 Elias Ratliff PA-C ACETAMINOPHEN 325 MG TABS Take 2 tablet by mouth every four hours as needed acetaminophen 54851265679 Elias Ratliff PA-C ATORVASTATIN CALCIUM 20 MG TABS Take 1 tablet by mouth every night atorvastatin 51878988357 Elias Ratliff PA-C apixaban (Eliquis) 5 mg tablet Take 1 tablet by mouth twice a day Eliquis Elias Ratliff PA-C DIGOXIN 250 MCG TABS Take 250 mcg by mouth once a day digoxin 87518243040 Elias Ratliff PA-C DIGOXIN 250 MCG TABS Take 250 mcg by mouth once a day digoxin 13745183147 Elias Ratliff PA-C apixaban (Eliquis) 5 mg tablet Take 1 tablet by mouth twice a day Eliquis Elias FAY-Salvador KETOCONAZOLE 2 % SHAM Apply to skin once a week ketoconazole 57625464064 Elias FAY-Salvador apixaban (Eliquis) 5 mg tablet Take 1 tablet by mouth twice a day Eliquis Elias FAY-C ACETAMINOPHEN 325 MG TABS Take 2 tablet by mouth every four hours as needed acetaminophen 60010802641 Elias FAY-Salvador apixaban (Eliquis) 5 mg tablet Take 1 tablet by mouth twice a day Eliquis Elias Ratliff PA-C BETAMETHASONE DIPROPIONATE 0.05 % LOTN Apply to skin once a week betamethasone dipropionate 87113275804 Elias FAY-Salvador BETAMETHASONE DIPROPIONATE 0.05 % LOTN Apply to skin once a week betamethasone dipropionate 35358439940 Elias Ratliff PA-C ALBUTEROL SULFATE HFA 108 (90 Base) MCG/ACT AERS Inhale 1-2 puff by mouth every six hours as needed albuterol sulfate 96345343852 Elias Ratliff PA-C PANTOPRAZOLE SODIUM 40 MG TBEC Take 1 tablet by mouth once a day pantoprazole 41220401236 Elias Ratliff PA-C ATORVASTATIN CALCIUM 20 MG TABS Take 1 tablet by mouth every night atorvastatin 13396109309 Elias Ratliff PA-C CARBIDOPA-LEVODO PA 25-100 MG TABS Take 1 tablet by mouth three times a day carbidopa-levodo pa 86604756667 Elias Ratliff PA-C Medications Administered No information available. Allergies, Adverse Reactions, Alerts No information available. Results No information available. Plan of Care Type Date Detail Appointment 01:40 PM Faustino See, [address] [facility], [address], [place], [address], Pending order Follow up Pending order Follow up Procedures Code Procedure Name Date Entry Date CPT-G2211 Complex e/m visit add on 202 06/15/22 Vital Signs Date Name Value Unit Description Height 70.98 [in_us] height E&M Immunizations No information available. Advance Directives No information available.
--- OUTSIDE RECORDS SUMMARY | 2024-12-16 00:17 | XMS_ITS | Clinical Summary ---
Author Organization [facility] Address [address] [facility] , [address] [place] [address] Phone Care Team Providers Care Client Account Assistant Name Role Phone Maria De Jesus Bahena Unavailable Unavailable Conditions or Problems Problem Name Problem Code Onset Date Status Entry Date Provider Comment Standard Description Annotate Parkinsonism [id number] (SNOMED CT) Active Elias Ratliff PA-C Parkinsonism Bradykinesia 554778980 (SNOMED CT) 08/28 Active 08/28 Faustino Hdz MD Bradykinesia Hx of falls 296962760 (SNOMED CT) 08/28 Active 08/28 Faustino Hdz MD History of fall Hx of stroke 980770470 (SNOMED CT) 08/28 Active 08/28 Faustino Hdz MD History of cerebrovascular accident Gait disturbance 83185919 (SNOMED CT) 08/28 Active 08/28 Faustino Hdz MD Abnormal gait Tremor, right hand 57590485 (SNOMED CT) 08/28 Active 08/28 Faustino Hdz MD Tremor PAF (paroxysmal atrial fibrillation ) I48.0 (ICD-10-CM ) 04/29 Active 08/28 Faustino Hdz MD Paroxysmal atrial fibrillation Imported from [facility]: [facility] ( at 09:31:51 AM) Acute CVA (cerebrovasc ular accident) I63.9 (ICD-10-CM ) 04/27 Active 08/28 Faustino Hdz MD Cerebral infarction, unspecified Imported from [facility]: [facility] ( at 09:31:51 AM) Medications Medication Instructions Start Date Stop Date Generic Name NDC Provider KETOCONAZOLE 2 % SHAM Apply to skin once a week ketoconazole 43831339008 Elias Ratliff PA-C PANTOPRAZOLE SODIUM 40 MG TBEC Take 1 tablet by mouth once a day pantoprazole 02449473826 Elias Ratliff PA-C ALBUTEROL SULFATE HFA 108 (90 Base) MCG/ACT AERS Inhale 1-2 puff by mouth every six hours as needed albuterol sulfate 00071792736 Elias Ratliff PA-C ACETAMINOPHEN 325 MG TABS Take 2 tablet by mouth every four hours as needed acetaminophen 66580063894 Elias Ratliff PA-C ATORVASTATIN CALCIUM 20 MG TABS Take 1 tablet by mouth every night atorvastatin 55227185091 Elias Ratliff PA-C apixaban (Eliquis) 5 mg tablet Take 1 tablet by mouth twice a day Eliquis Elias Ratliff PA-C DIGOXIN 250 MCG TABS Take 250 mcg by mouth once a day digoxin 70424693007 Elias FAY-[place] DIGOXIN 250 MCG TABS Take 250 mcg by mouth once a day digoxin 84408782670 Elias Ratliff PA-C apixaban (Eliquis) 5 mg tablet Take 1 tablet by mouth twice a day Eliquis Elias Ratliff PA-C KETOCONAZOLE 2 % SHAM Apply to skin once a week ketoconazole 62855439791 Elias Ratliff PA-C apixaban (Eliquis) 5 mg tablet Take 1 tablet by mouth twice a day Eliquis Elias Ratliff PA-C ACETAMINOPHEN 325 MG TABS Take 2 tablet by mouth every four hours as needed acetaminophen 64691245352 Elias Ratliff PA-C apixaban (Eliquis) 5 mg tablet Take 1 tablet by mouth twice a day Eliquis Elias Ratliff PA-C BETAMETHASONE DIPROPIONATE 0.05 % LOTN Apply to skin once a week betamethasone dipropionate 75982345306 Elias Ratliff PA-C BETAMETHASONE DIPROPIONATE 0.05 % LOTN Apply to skin once a week betamethasone dipropionate 75295167563 Elias Ratliff PA-C ALBUTEROL SULFATE HFA 108 (90 Base) MCG/ACT AERS Inhale 1-2 puff by mouth every six hours as needed albuterol sulfate 63584336859 Elias Ratliff PA-C PANTOPRAZOLE SODIUM 40 MG TBEC Take 1 tablet by mouth once a day pantoprazole 66113328678 Elias Ratliff PA-C ATORVASTATIN CALCIUM 20 MG TABS Take 1 tablet by mouth every night atorvastatin 76464404169 Elias Ratliff PA-C CARBIDOPA-LEVODO PA 25-100 MG TABS Take 1 tablet by mouth three times a day carbidopa-levodo pa 09522167997 Elias Ratliff PA-C apixaban (Eliquis) 5 mg tablet Take 1 Tablet (5 mg) by mouth two times daily. Eliquis QIEUSER QIEUSER apixaban (Eliquis) 5 mg tablet Take 1 Tablet (5 mg) by mouth two times daily. Eliquis QIEUSER QIEUSER PANTOPRAZOLE SODIUM 40 MG TBEC Take 1 Tablet (40 mg) by mouth once daily before a meal. pantoprazole 58467565783 QIEUSER QIEUSER KETOCONAZOLE 2 % SHAM Apply topically to affected area(s) every Monday. ketoconazole 81584428626 QIEUSER QIEUSER VITRON-C 65-125 MG TABS iron,carbonyl-vi tamin c 48638890772 QIEUSER QIEUSER DIGOXIN 250 MCG TABS Take 250 mcg by mouth once daily. digoxin 22451949539 QIEUSER QIEUSER BETAMETHASONE DIPROPIONATE 0.05 % LOTN Apply topically to affected area(s) every Monday. betamethasone dipropionate 22070181780 QIEUSER QIEUSER ATORVASTATIN CALCIUM 20 MG TABS Take 1 Tablet (20 mg) by mouth at bedtime. atorvastatin 66649814944 QIEUSER QIEUSER ALBUTEROL SULFATE HFA 108 (90 Base) MCG/ACT AERS Inhale 1-2 Puffs by mouth every 6 hours if needed (for allergy symptoms). albuterol sulfate 34169259751 QIEUSER QIEUSER ACETAMINOPHEN 325 MG TABS Take 2 Tablets (650 mg) by mouth every 4 hours if needed for Pain (For mild pain.). Max acetaminophen dose: 4000mg in 24 hrs. acetaminophen 90200719348 QIEUSER QIEUSER PANTOPRAZOLE SODIUM 40 MG TBEC Take 1 Tablet (40 mg) by mouth once daily before a meal. pantoprazole 00700336427 QIEUSER QIEUSER KETOCONAZOLE 2 % SHAM Apply topically to affected area(s) every Monday. ketoconazole 01456239995 QIEUSER QIEUSER VITRON-C 65-125 MG TABS iron,carbonyl-vi tamin c 07106477481 QIEUSER QIEUSER DIGOXIN 250 MCG TABS Take 250 mcg by mouth once daily. digoxin 58225551045 QIEUSER QIEUSER BETAMETHASONE DIPROPIONATE 0.05 % LOTN Apply topically to affected area(s) every Monday. betamethasone dipropionate 10072274433 QIEUSER QIEUSER ATORVASTATIN CALCIUM 20 MG TABS Take 1 Tablet (20 mg) by mouth at bedtime. atorvastatin 58431282094 QIEUSER QIEUSER apixaban (Eliquis) 5 mg tablet Take 1 Tablet (5 mg) by mouth two times daily. Eliquis QIEUSER QIEUSER apixaban (Eliquis) 5 mg tablet Take 1 Tablet (5 mg) by mouth two times daily. Eliquis QIEUSER QIEUSER ALBUTEROL SULFATE HFA 108 (90 Base) MCG/ACT AERS Inhale 1-2 Puffs by mouth every 6 hours if needed (for allergy symptoms). albuterol sulfate 57530902388 QIEUSER QIEUSER ACETAMINOPHEN 325 MG TABS Take 2 Tablets (650 mg) by mouth every 4 hours if needed for Pain (For mild pain.). Max acetaminophen dose: 4000mg in 24 hrs. acetaminophen 96165053185 QIEUSER QIEUSER Medications Administered No information available. Allergies, Adverse Reactions, Alerts Allergy Name Reaction Description Start Date Severity Statu s Provider UNLISTED ALLERGEN (INCLUDE DETAIL IN COMMENTS) Shortness Of Breath Mild Active Manjinder phillipski Results Date Name Value Unit Range Flag Description Chart Maintenance: Patient I ntake ABSOLUTE BAS completed 10*3/uL Basoph ils [#/volume] in Blood NON-HDL CHOL 138 mg/dL choleste rol, non-HDL, total CHOL/HDL 4.21 cholesterol/ HDL ratio, serum TRIGLYC TOT 59 mg/dL Triglycer juan [Mass/volume] in Serum or Plasma - mg/dL LDL 126 mg/dL Cholesterol i n LDL [Mass/volume] in Serum or Plasma - mg/dL HDL 43 mg/dL Cholesterol i n HDL [Mass/volume] in Serum or Plasma - mg/dL CHOLESTEROL 181 mg/dL Cholester ol [Mass/volume] in Serum or Plasma - mg/dL Office Visit: Office Visit f ax SMOK STATUS former smoker Tob acco smoking status Replaced Document: (P) PROTE IN, TOTAL AND PROTEIN ELECTROPHORESIS W/SCAN, PROTE ... [id number] * GE use only - for [employer] import when terms are not otherwise specified COPPER SER * ug/mL copper, bl ood AMMONIA P * umol/L Ammonia [Mass/volume] in Plasma B-12 * pg/mL Cobalamin (Vi tamin B12) [Mass/volume] in Serum or Plasma TSH * u[iU]/mL Thyrotropin [Units/volume] in Serum or Plasma CERULOPLASMI * mg/dL cerulopl asmin, serum ESR 2 mm/h < OR = 20 N Erythrocyte sedimentation rate by Westergren method MAGNESIUM * mg/dL Magnesium [Moles/volume] in Serum or Plasma CA * mg/dL Calcium [Mass/volume] in Serum or Plasma INTRP * Interpretatio n ABNPROTBND3 * g/dL Abnormal Protein Band 3, g/dL ABNPROTBND2 * g/dL Abnormal Protein Band 2, g/dL ABNPROTBND * g/dL Abnormal P rotein Band 1, g/dL GAMMA GLOB * mg/dL Gamma glob ulin [Mass/volume] in Serum or Plasma by Electrophoresis [id number] * g/dL beta 2 g lobulin [id number] * g/dL beta 1 g lobulin ALPHA 2 GLOB * Alpha 2 globulin [Mass/volume] in Serum or Plasma by Electrophoresis ALPH-1 SR PE * g/dL alpha-1 globulin, serum, by protein electrophoresis ALBUM SER PE * g/dL albumin, serum by protein electrophoresis PROTEIN, TOT * g/dL Protein [Mass/volume] in Serum or Plasma Plan of Care Type Date Detail Appointment 01:40 PM Faustino See, [address] [facility], [address], [place], [address], Pending order Follow up Pending order Follow up Pending order Follow up CORTES af ter testing Pending order MRI-Brain W/O Pending order Ammonia Pending order Calcium Serum Pending order Ceruloplasmin Pending order Copper Pending order ESR (Sedimentati on Rate) Pending order Magnesium Serum Pending order Manganese Pending order Protein Electrop horesis Serum w/Interp Pending order TSH Pending order Vitamin B12 Procedures Code Procedure Name Date Entry Date ORDERS Follow up CORTES after testing CPT-G2211 Complex e/m visit add on 06/15/22 [id number] MRI-Brain W/O CPT-36298 MRI Brain W/O ORDERS ESR (Sedimentation Rate) 06/12/22 ORDERS Calcium Serum ORDERS Magnesium Serum ORDERS TSH ORDERS Vitamin B12 ORDERS Ceruloplasmin ORDERS Protein Electrophoresis Serum w/Interp 30/08/22 ORDERS Copper ORDERS Manganese Vital Signs Date Name Value Unit Description Height 70.98 [in_us] height E&M BMI (Body Mass Index) 25.66 kg/m2 Bod y Mass Index (Ratio) BP Diastolic 68 mm[Hg] blood pressu re, diastolic BP Systolic 131 mm[Hg] blood pressur e, systolic Heart Rate 54 /min pulse rate Respiratory Rate 11 /min respirat ory rate E&M Weight Measured 183.2 [lb_av] weight E& M Weight Measured 183.2 [lb_av] weight E& M Weight Measured 83.27 kg weight in kilograms E&M Immunizations No information available. Advance Directives No information available.
--- OUTSIDE RECORDS SUMMARY | 2024-12-16 00:17 | XMS_ITS | Clinical Summary ---
Author Organization [facility] Address [address] [place] [address] Care Team Providers Care Career Development Coordinator/Teacher Name Role Phone John Garcia MD Primary Care Provider + [phone] Corinne Moran Unavailable Mj Dykes MD Unavailable + [phone] Allergies Active Allergy Reactions Criticality Noted Date Comments Unlisted Allergen (Include Detail In Comments) Shortness Of Breath 07/15/2020 [place] wood dust Medications albuterol HFA (PRO-AIR; VENTOLIN; PROVENTIL) 90 mcg/actuation inhaler Inhale 1-2 Puffs by mouth every 6 hours if needed (for allergy symptoms). 05/14/19 21 Active betamethasone dipropionate 0.05% (DIPROSONE LOTION 0.05%) lotion Apply topically to affected area(s) every Monday. 12/02/19 20 Active ketoconazole 2% shampoo (NIZORAL) 2 % shampoo Apply topically to affected area(s) every Monday. 12/02/19 20 Active acetaminophen (TYLENOL) 325 mg tabletIndication s:Cerebrovascula r accident (CVA), unspecified mechanism (HC) Take 2 Tablets (650 mg) by mouth every 4 hours if needed for Pain (For mild pain.). Max acetaminophen dose: 4000mg in 24 hrs. 0 05/01/19 22 Active pantoprazole (PROTONIX) 40 mg delayed-release tabletIndication s:Gastroesophage al reflux disease, unspecified whether esophagitis present Take 1 Tablet (40 mg) by mouth once daily before a meal. 30 Tablet 04/30/2021 10:40 AM CDT 05/02/19 22 Active digoxin (LANOXIN) 250 mcg (0.25 mg) tablet Take 250 mcg by mouth once daily. 05/16/19 22 Active iron,carbonyl-vi tamin C (Vitron-C) 65 mg iron- 125 mg Delayed-Release tablet 04/07/19 23 Active apixaban (Eliquis) 5 mg tabletIndication s:PAF (paroxysmal atrial fibrillation) (HC),Cerebrovasc ular accident (CVA), unspecified mechanism (HC) Take 1 Tablet (5 mg) by mouth two times daily. 180 Tablet 3 10/03/19 25 Active atorvastatin (LIPITOR) 20 mg tabletIndication s:Cerebrovascula r accident (CVA), unspecified mechanism (HC) Take 1 Tablet (20 mg) by mouth at bedtime. 90 Tablet 3 10/03/19 25 Active tiZANidine (ZANAFLEX) 4 mg tabletIndication s:Lumbar spondylosis,Bulg ing lumbar disc,Lumbar facet arthropathy Take 1 Tablet (4 mg) by mouth every 6 hours if needed for Muscle Spasm. 24 Tablet 1 10/25/19 25 Active Active Problems Problem Noted Date Diagnosed Date PAF (paroxysmal atrial fibrillation) 04/29/2021 Acute CVA (cerebrovascular accident) 04/27/2021 Encounters Date Type Department Care Team Description 10/24/2024 10:40 AM CDT Office Visit [facility] [address] [place] [address] Yannick Hearn MD Consult (Back pain - back pain started roughly 2 years ago. Pain has gradually increased. ) 10/24/2024 Travel 10/20/2024 Travel 10/02/2024 9:00 AM CDT Office Visit [facility] [address] [place] [address] Vj Delacruz MD Follow Up (FOLLOW UP) 10/02/2024 Orders Only [facility] [address] [place] [address] Vj Delacruz MD 1 scan: (1-Ord) 10/02/2024 10/02/2024 Travel 09/29/2024 Travel from Last 3 Months Social History Tobacco Use Types Packs/Day Years Used Date Smoking Tobacco: Former Cigarettes 1 10 1 977 - 1987 Smokeless Tobacco: Never Tobacco Cessation:Counseling Given: Not Answered Alcohol Use Standard Drinks/Week Comments Not Currently 0 (1 standard drink = 0.6 oz pur e alcohol) Sex and Gender Information Value Date Recorded Sex Assigned at Not on file 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 Gender Identity Not on file Sexual Orientation Not on file Obstetrics History Last Filed Vital Signs Vital Sign Reading Time Taken Comments Blood Pressure 125/67 10/24/2024 10:45 AM CDT Pulse 52 10/24/2024 10:45 AM CDT Temperature 35.7 C (96.2 F) 07/09/2021 1:00 PM CDT Respiratory Rate 18 10/02/2024 8:42 AM CDT Oxygen Saturation 99% 10/24/2024 10:45 AM CDT Inhaled Oxygen Concentration - - Weight 82.6 kg (182 lb) 10/24/2024 10:45 AM CDT Height 180.3 cm (5' 11) 10/02/2024 8:42 AM CDT Body Mass Index 25.38 10/02/2024 8:42 AM CDT Plan of Treatment Upcoming Encounters Date Type Department Care Team (Late st Contact Info) Description 01/01/2025 1:00 PM ETHYL BLENDER Office Visit [facility] [address] [place] [address] Yannick Hearn MD [address] [place] [address] Health Maintenance Due Date Last Done Comments Tetanus booster 1964 Depression screening for age 12+ 1965 Hepatitis C screening for age 18-79 12/10/1971 Pneumococcal series for age 50+ (1 of 2 - PCV) 1972 Colonoscopy through age 75 1998 Zoster (shingles) series for age 50+ (1 of 2) 12/10/2003 RSV vaccine for adults or (1 - Risk 60-74 years 1-dose series) 2013 Medicare Wellness for age 65+ 2018 Influenza Vaccine (#1) 2024 BMI (ht and wt on same day) for age 18+ 10/02/2025 10/02/2024, 09/29/2023, 11/17/2022, Additional history exists Lipids for age 45-75 04/28/2026 04/28/2021 AAA screening age 65-74 Completed 07/28/2021 Hepatitis B series for 19+ Aged Out N o longer eligible based on patient's age to complete this topic Procedures Procedure Name Priority Date/Time Associated Diagnosis Comments EKG 12 LEAD Routine 10/02/2024 12:00 AM CDT PAF (paroxysmal atrial fibrillation) (HC) US ABD AORTA SCREENING Routine 07/28/2021 9:58 AM CDT Screening for AAA (abdominal aortic aneurysm) LIPID PANEL Early AM 04/28/2021 3:47 AM CDT from Last 3 Months or Most Recently Relevant to Health Maintenance Results * EKG 12 LEAD (10/02/2024 12:00 AM CDT) Vj Delacruz MD EKG ORD Final Result * US ABD AORTA SCREENING (07/28/2021 9:58 AM CDT) Anatomical Region Laterality Modality Abdomen, AORTA Ultrasound 07/28/2021 9:45 AM CDT Narrative 07/28/2021 10:49 AM CDT VASCULAR ULTRASOUND REPORT HA BLANDON : 1955 Study Date: 07/28/2021 9:45:46 AM Age: 65 years Tech: DANELLE Gender: M Referring MD: CORINNE MORAN Site: [facility] Study performed: Aorta Indication for study: AAA [...] Accreditation Commission (IAC/Vascular), www.intersocietal.org/vascular Report generated by V I O. Final Procedure Note Óscar Sebastian MD - 07/28/2021 VASCULAR ULTRASOUND REPORT HA BLANDON : 1955 Study Date: 07/28/2021 9:45:46 AM Age: 65 years Tech: LMS Gender: M Referring MD: CORINNE MORAN Site: [facility] Study performed: Aorta Indication for study: AAA [...] theIntersocietal Accreditation Commission (IAC/Vascular),[email or web address]/vascular Report generated by V I O. Final us Corinne Grey-Lary FAY Hollis inadeedee Result * Lipid Panel (04/28/2021 3:47 AM CDT) [facility] CHOLESTEROL,TOTAL 181 100 - 199 mg/dL 04/28/2021 4:37 AM CDT [facility] TRIGLYCERIDES 59 <150 mg/dL 04/28/2021 4:37 AM CDT [facility] HDL CHOLESTEROL 43 >40 mg/dL 03/23/202 2 4:37 AM CDT [facility] NON-HDL CHOLESTEROL 138 <145 mg/dl 04/28/2021 4:37 AM CDT [facility] CHOL/HDL RATIO 4.21 <4.50 04/28/2021 4:37 AM CDT [facility] LDL CHOLESTEROL 126 <=130 mg/dL 04/28/2021 4:37 AM CDT [facility] VLDL CHOLESTEROL 12 <=30 mg/dL 04/28/2021 4:37 AM CDT [facility] PROVIDER ORDERED STATUS RANDOM 04/28/2021 4:37 AM CDT [facility] Blood BLOOD SPECIMEN / Unknown Venipuncture / Unknown 04/28/2021 3:47 AM CDT 04/28/2021 4:03 AM CDT us Papi Patel MD CHEMISTRY Final Resul t [facility] SENDOUT INTERNAL ZIP [id number] [place] [id number] from Last 3 Months or Most Recently Relevant to Health Maintenance Insurance [place] MR PB ONLY [place] BLUE HB ONLY MEDICARE PART B HB ONLY Advance Directives * Full Code (Latest Code Status on File) Date Activated Date Inactivated Comments 04/27/2021 9:02 PM 04/30/2021 1:27 PM Question Answer Comments Code Status Discussion: Reviewed Preferences Care Teams Career Development Coordinator/Teacher Relationship Specialty Start Date End Date John Garcia MD [address] [place] [address] PCP - General Internal Medicine 06/17/20 Corinne Moran PA [address] [place] [address] Physician's Asset Protection Lead Cardiology - Electrophysiology 07/08/21 Mj Dykes MD [address] [place] [address] Cardiology - EP Cardiovascular Disease 09/20/21
--- OUTSIDE RECORDS SUMMARY | 2024-12-16 00:18 | XMS_ITS | Clinical Summary ---
Author Organization [facility] Address [address] [place] [address] Care Team Providers Care Photoengraving Helper Name Role Phone John Garcia MD Primary Care Provider Allergies Active Allergy Reactions Criticality Noted Date Comments Trees 05/27/2002 CEDAR DUST Medications ALBUTEROL 90 MCG/ACT IN AERS 2 puffs every 4 hours as needed 1 12 06/15/19 07 Active VIAGRA 100 MG OR TABS 1 TABLET DAILY NEEDED 15 1 year 06/15/19 07 Active apixaban ANTICOAGULANT (ELIQUIS) 5 MG tablet Take 1 tablet by mouth 2 times daily 06/04/19 22 Active digoxin (LANOXIN) 250 MCG tablet Take 250 mcg by mouth daily 05/16/19 22 Active atorvastatin (LIPITOR) 20 MG tablet Take 1 tablet by mouth At Bedtime 05/01/19 22 Active pantoprazole (PROTONIX) 40 MG EC tablet Take 40 mg by mouth daily 05/02/19 22 Active acetaminophen (TYLENOL) 325 MG tablet Take 650 mg by mouth every 6 hours as needed 05/01/19 22 Active Multiple Vitamin (ONE-A-DAY ESSENTIAL) TABS Take 1 tablet by mouth daily 10/02/19 22 Active senna-docusate (SENOKOT-S/DOMINIC LACE) 8.6-50 MG tabletIndications :S/P total knee arthroplasty, right Take 1-2 tablets by mouth 2 times daily Take while on oral narcotics to prevent or treat constipation. 30 tablet 02/28/19 23 Active polyethylene glycol (MIRALAX) 17 g packetIndications :S/P total knee arthroplasty, right Take 17 g by mouth daily 10 packet 02/28/19 23 Active acetaminophen (TYLENOL) 325 MG tabletIndications :S/P total knee arthroplasty, right Take 2 tablets (650 mg) by mouth every 4 hours as needed for other (mild pain) May use regular strength (325mg) acetaminophen over the counter medication when Rx runs out. 100 tablet 02/28/19 23 Active oxyCODONE (ROXICODONE) 5 MG tabletIndications :S/P total knee arthroplasty, right Take 1-2 tablets (5-10 mg) by mouth every 4 hours as needed for moderate to severe pain or severe pain (7-10) Begin weaning on POD3 30 tablet 02/28/19 23 Active hydrOXYzine (ATARAX) 10 MG tabletIndications :S/P total knee arthroplasty, right Take 1 tablet (10 mg) by mouth every 6 hours as needed for itching or anxiety (with pain, moderate pain) 30 tablet 02/28/19 23 Active betamethasone dipropionate (DIPROSONE) 0.05 % external lotion APPLY THIN LAYER TO AFFECTED AREA ON SCALP 1-2X DAILY FOR 2 WEEKS , TAKE 2 WEEK BREAK THEN NEEDED 02/18/19 23 Active hydrocortisone 2.5 % ointment APPLY TO AFFECTED AREA ON EYEBROWS TWICE A DAY FOR 2 WEEKS THEN REPEAT NEEDED FOR FLARES 10/22/19 22 Active Active Problems Problem Noted Date Diagnosed Date Iatrogenic pulmonary embolism and infarction Intracranial injury of other and unspecified nature, without mention of open intracranial wound, loss of consciousness of unspecified duration 05/24/2002 Overview (06/14/2006): brain injury, closed head injury, 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 This was complicated by a pulmonary embolism while he was in the hospital and also atrial fibrillation felt related to the stress of the pulmonary embolism and the closed head injury. 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 Not on file Not on file Not on file Last Filed Vital Signs Vital Sign Reading Time Taken Comments Blood Pressure 141/58 03/01/2022 7:31 AM THEATRICAL TROUPER Pulse 55 03/01/2022 7:31 AM THEATRICAL TROUPER Temperature 36.7 C (98.1 F) 03/01/2022 7:31 AM THEATRICAL TROUPER Respiratory Rate 20 02/28/2022 11:5 8 PM THEATRICAL TROUPER Oxygen Saturation 97% 03/01/2022 7:31 AM THEATRICAL TROUPER Inhaled Oxygen Concentration - - Weight 72.5 kg (159 lb 12.8 oz) 02/28/2022 7:59 AM THEATRICAL TROUPER Height 180.3 cm (5' 11) 02/28/2022 7:59 AM THEATRICAL TROUPER Body Mass Index 22.29 02/28/2022 7:59 AM THEATRICAL TROUPER Plan of Treatment Health Maintenance Due Date Last Done Comments ANNUAL REVIEW OF HM ORDERS 1953 CT COLONOGRAPHY 1953 FIT 1955 FLEX SIG 1953 sDNA (Cologuard) 1955 HEPATITIS C SCREENING 12/10/1971 LUNG CANCER SCREENING 12/10/2003 PNEUMOCOCCAL VACCINE 50+ YEARS (1 of 1 - PCV) 12/10/2003 RSV VACCINE (1 - Risk 50-74 years 1-dose series) 12/10/2003 LIPID 05/27/2005 05/27/2004 COLONOSCOPY 06/16/2007 06/15/2004 COLORECTAL CANCER SCREENING 06/16/2007 FALL RISK ASSESSMENT 2018 MEDICARE ANNUAL WELLNESS VISIT 2018 06/14/2006, 05/27/2004 PHQ-2 (once per calendar year) 2024 COVID-19 VACCINE ( season) 2024 03/02/2021, 08/07/2020 INFLUENZA VACCINE (#1) 2024 , 11/13/2013, 11/13/2013, Additional history exists DIABETES SCREENING 03/01/2025 03/01/2022, 0 02/14/2022, 05/27/2004, Additional history exists ADVANCE CARE PLANNING 03/08/2027 03/08/2022 DTAP/TDAP/TD VACCINE (3 - Td or Tdap) 05/15/2030 05/15/2020, 01/09/2009, 02/06/1997 ZOSTER VACCINE Completed 03/22/2019, 01/06, 09/22/2016 HPV VACCINE (No Doses Required) Completed MENINGITIS VACCINE Aged Out No longer eligible based on patient's age to complete this topic Goals Goal Patient Goal Type Associated Problems Recent Progress Patient-Stated? Author Total Joint Replacement Hip Pathway Care Plan Total Joint Replacement Hip Pathway No Santosh Lawson RN Medical Devices Implanted Type Area Gifted Program Teacher Device Identifier Shelf Expiration Date Model / Serial / Lot Bone Cement Simplex Full Dose 6191-1-001 - [id number] Implanted:Qty: 1 on 02/28/2022 by Malachi Serna MD at [facility] Cement, Bone Right: Knee [employer] 07/06/2024 6191-1-001 / / [id number] Imp Tibial Zim Psn Technical Aide Stm 5deg Sz Gr [id number] - [id number] Implanted:Qty: 1 on 02/28/2022 by Malachi Serna MD at [facility] Total Joint Component /Insert Right: Knee [employer] 07/12/2031 42-5320-07 10-08 / / [id number] Imp Comp Fem Zim Psn Ps Cmt Std Sz 9 Rt [id number] - [id number] Implanted:Qty: 1 on 02/28/2022 by Malachi Serna MD at [facility] Total Joint Component /Insert Right: Knee [employer] 08/14/2031 42-5006-06 6- / [id number] Imp Patella Zim Knee All Diana 35mm [id number] - [id number] Implanted:Qty: 1 on 02/28/2022 by Malachi Serna MD at [facility] Total Joint Component /Insert Right: Knee [employer] 11/30/2026 42-5400-00 0-35 / [id number] Imp Art Surface Zim Psn Ps 10mm Rt Sz 6-9 Gh [id number] - [id number] Implanted:Qty: 1 on 02/28/2022 by Malachi Serna MD at [facility] Total Joint Component /Insert Right: Knee [employer] 06/05/2026 42-5214-00 9- [id number] Procedures Procedure Name Priority Date/Time Associated Diagnosis Comments GLUCOSE Routine 03/01/2022 6:24 AM THEATRICAL TROUPER ZZHC COLONOSCOPY THRU STOMA, DIAGNOSTIC Routine 06/15/2004 Routine Medical Exam Screening Mal Neop-Prostate Screening Mal Neop-Colon Screening-Diabetes Mellitus Screening-Lipoid Disorders CL AFF A.M.A. LIPID PANEL Routine 05/27/2004 9:25 AM CDT Routine Medical Exam Screening Mal Neop-Prostate Screening Mal Neop-Colon Screening-Diabetes Mellitus Screening-Lipoid Disorders from Last 3 Months or Most Recently Relevant to Health Maintenance Results * (ABNORMAL) Glucose (03/01/2022 6:24 AM THEATRICAL TROUPER) Glucose 115(H) 70 - 99 mg/dL 03/01/2022 7:19 AM THEATRICAL TROUPER [facility] Patient Fasting > 8hrs? No 03/01/2022 7:19 AM THEATRICAL TROUPER [facility] Blood STRUCTURE OF RIGHT UPPER LIMB / Unknown Venipuncture / Unknown 03/01/2022 6:24 AM THEATRICAL TROUPER 03/01/2022 6:54 AM THEATRICAL TROUPER Malachi Serna MD LAB - BLOOD ORDERABLES F inal Result [facility] [address] Lab (1st floor, no room number) [place] [address], [facility] [phone] * Colonoscopy (06/15/2004) Hill Ames MD PROCEDURES Final Result Performing Organization Address City/[facility]/ZIP Co de Phone Number [facility] [place], [place] [address] * (ABNORMAL) A.M.A. LIPID PANEL (05/27/2004 9:25 AM CDT) [facility] [address] Cholesterol 230(H) 0 - 200 mg/dL [facility] Comment: Cholesterol Reference Range: <200 The NCEP recommends further evaluation of: 1. Patients with cholesterol greater than 200 mg/dL if additional risk factors are present. 2. All patients with a cholesterol greater than 240 mg/dL. Triglycerides 240(H) 0 - 150 mg/dL [facility] HDL Cholesterol 41 >40 mg/dL [facility] LDL Cholesterol Calculated 141(H) 0 - 129 mg/dL [facility] VLDL-Cholesterol 48(H) 0 - 30 mg/dL [facility] Cholesterol/HDL Ratio 5.6(H) 0.0 - 5.0 [facility] 05/27/2004 9:25 AM CDT 05/27/2004 9:27 AM CDT Hill Ames MD LABORATORY Final Result [facility] [place], [place] [address] from Last 3 Months or Most Recently Relevant to Health Maintenance Additional Health Concerns Active Problems Noted Date Diagnosed Date Total Joint Replacement Hip Pathway 02/22/2022 Insurance BCBS [place] [employer] MEDICARE Advance Directives For more information, please contact: [phone] Documents on File Type Date Recorded Patient [place] 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
--- OUTSIDE RECORDS SUMMARY | 2024-12-16 00:18 | XMS_ITS | Clinical Summary ---
Author Organization [facility] Address [address] [place] [address] Care Team Providers Care Stallion Manager Name Role Phone Unavailable Primary Care Provider Unavailabl e Source Comments Patient records contain information from all sites at [facility]. For routine questions regarding patient records, call [phone] during business hours, M-F 8:00 AM - 5:00 PM Central Time. Record requests for emergency care only can be directed to [phone] at any time.[facility] Medications hydrocortisone (HYTONE) 2.5 % creamIndicatio ns:Dermatitis Seborrheic Apply 1 Application topically 2 (two) times a day as needed (Rash). Apply to face mixed with ketoconazole up to twice daily x 2 weeks. 30 g 3 4 Active ketoconazole (NIZORAL) 2 % creamIndicatio ns:Dermatitis Seborrheic Apply 1 Application topically 2 (two) times a day. Apply to face mixed with Hydrocortisone twice daily x 2 weeks 30 g 3 4 Active ketoconazole (NIZORAL) 2 % shampooIndicat ions:Dermatiti s Seborrheic Apply 1 Application topically 2 (two) times a week. Apply to damp skin, lather, leave on 5 minutes, and rinse. Can alternate with selsun blue every other time you rinse your hair. 120 mL 11 4 Active fluocinonide (Lidex) 0.05 % external solutionIndica tions:Dermatit is Seborrheic Apply 1 Application topically 2 (two) times a day as needed for rash. Apply to scalp as needed for itching up to twice daily. 60 mL 11 5 Active Active Problems Problem Noted Date Diagnosed Date Embolus Pulmonary Iatrogenic 05/04/2013 Overview (06/28/2016): Iatrogenic Pulmonary Embolism and Infarction Iatrogenic pulmonary embolism and infarction Immunizations Immunization Administration Dates Next Due Influenza, Unspecified 12/26/2002 Td (Adult), adsorbed 02/06/1997 Social History Tobacco Use Types Packs/Day Years Used Date Smoking Tobacco: Never Assessed [facility] Utilities Answer Date Recorded In the past 12 months has th e electric, gas, oil, or water company threatened to shut off services in your home? No 04/17/2023 Hunger Vital Sign Answer Date Recorded Within the past 12 months, y ou worried that your food would run out before you got the money to buy more. Never true 04/17/19 24 Within the past 12 months, t he [...] things needed for daily living? No 04/17/2023 Housing Stability Answer Date Recorded What is your living situation today? 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 Gender Identity Male 04/16/2023 2:17 PM CDT Sexual Orientation Straight 04/16/2023 2: 17 PM CDT Plan of Treatment Health Maintenance Due Date Last Done Comments CT Colonography 1955 Cologuard 1955 FIT 1955 Hepatitis C Screening 1955 Pneumococcal vaccine (50+ years) (1 of 1 - PCV) 12/10/2003 RSV vaccine - (32-36 weeks) or 50+ years (1 - Risk 50-74 years 1-dose series) 12/10/2003 Colonoscopy 06/15/2014 06/15/2004 Colorectal Cancer Screening 06/15/2014 Depression Screening (Annual PHQ-2) 02/07/2024 Fall Risk Screen (Annual) 02/07/2024 COVID-19 Vaccine (3 - season) 2024 03/02/2021, 08/07/2020 Influenza Vaccine (#1) 2024 , 11/13/2013, 11/12/2012, Additional history exists Fasting Glucose for Diabetes Screening 11/17/2025 11/17/2022, 03/01/2022, 02/14/2022, Additional history exists DTaP,Tdap,and Td Vaccines (3 - Td or Tdap) 05/15/2030 05/15/2020, 01/09/2009, 02/06/1997 Zoster Vaccines Completed 03/22/2019, 01/06, 09/22/2016 IPV Vaccines Aged Out No longer eligi ble based on patient's age to complete this topic Insurance [facility] MEDICARE Advance Directives For more information, please contact: [phone] Documents on File Type Date Recorded 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
[2024-12-16 00:27] VITALS: BP 169/81; PULSE 62; RESP 16; TEMP 36.7; O2SAT 97; BMI 24.8
--- NOTE | 2024-12-16 00:52 | CRLHL7_ITS ---
For Patients: As a result of the Century Cures Act, medical imaging exams and procedure reports are released immediately into your electronic medical record. You may view this report before your referring provider. If you have questions, please contact your health care provider. Indication: Low back pain. Technique: Lumbar spine 2 views. Comparison: Lumbar spine MRI 07/29/2024. Findings: Five lumbar type vertebral bodies. Acute, mild superior endplate compression fracture of L1. 2 mm retrolisthesis of L2 on L3. Alignment is otherwise normal. Mild intervertebral disc height loss at all levels, greatest at L4-5, with marginal osteophyte formation. No aggressive osseous lesion. Multilevel bilateral facet arthrosis, greatest at the lumbar levels. Surgical clips within the pelvis compatible with prior hernia repair. The soft tissues are otherwise unremarkable. Impression: Acute, mild superior endplate compression fracture of L1. Dictated by Wilfredo Abdalla MD @ 12/16/2024 1:41:12 AM (Electronically Signed)
--- OUTSIDE RECORDS SUMMARY | 2024-12-16 00:57 | XMS_ITS | Clinical Summary ---
Author Organization [facility] Address [address] , [address] [place] [address] Phone Care Team Providers Care Remedial Reading Teacher Name Role Phone Maria De Jesus Bahena Unavailable Unavailable Conditions or Problems Problem Name Problem Code Onset Date Status Entry Date Provider Comment Standard Description Annotate Parkinsonism 29454389 (SNOMED CT) Active Elias Ratliff PA-C Parkinsonism Bradykinesia 974497924 (SNOMED CT) 08/28 Active 08/28 Faustino Hdz MD Bradykinesia Hx of falls 201489425 (SNOMED CT) 08/28 Active 08/28 Faustino Hdz MD History of fall Hx of stroke 476492712 (SNOMED CT) 08/28 Active 08/28 Faustino Hdz MD History of cerebrovascular accident Gait disturbance 68227522 (SNOMED CT) 08/28 Active 08/28 Faustino Hdz MD Abnormal gait Tremor, right hand 19754027 (SNOMED CT) 08/28 Active 08/28 Faustino Hdz MD Tremor PAF (paroxysmal atrial fibrillation ) I48.0 (ICD-10-CM ) 04/29 Active 08/28 Faustino Hdz MD Paroxysmal atrial fibrillation Imported from [facility]: [facility] ( at 09:31:51 AM) Acute CVA (cerebrovasc ular accident) I63.9 (ICD-10-CM ) 04/27 Active 08/28 Faustino Hdz MD Cerebral infarction, unspecified Imported from [facility]: [facility] ( at 09:31:51 AM) Medications Medication Instructions Start Date Stop Date Generic Name NDC Provider KETOCONAZOLE 2 % SHAM Apply to skin once a week ketoconazole 94172078408 Elias Ratliff PA-C PANTOPRAZOLE SODIUM 40 MG TBEC Take 1 tablet by mouth once a day pantoprazole 66606668553 Elias Ratliff PA-C ALBUTEROL SULFATE HFA 108 (90 Base) MCG/ACT AERS Inhale 1-2 puff by mouth every six hours as needed albuterol sulfate 38513004124 Elias Ratliff PA-C ACETAMINOPHEN 325 MG TABS Take 2 tablet by mouth every four hours as needed acetaminophen 77547865821 Elias Ratliff PA-C ATORVASTATIN CALCIUM 20 MG TABS Take 1 tablet by mouth every night atorvastatin 54972578983 Elias Ratliff PA-C apixaban (Eliquis) 5 mg tablet Take 1 tablet by mouth twice a day Eliquis Elias Ratliff PA-C DIGOXIN 250 MCG TABS Take 250 mcg by mouth once a day digoxin 48562609375 Elias FAY-[place] DIGOXIN 250 MCG TABS Take 250 mcg by mouth once a day digoxin 52303732011 Elias Ratliff PA-C apixaban (Eliquis) 5 mg tablet Take 1 tablet by mouth twice a day Eliquis Elias Ratliff PA-C KETOCONAZOLE 2 % SHAM Apply to skin once a week ketoconazole 98671075759 Elias Ratliff PA-C apixaban (Eliquis) 5 mg tablet Take 1 tablet by mouth twice a day Eliquis Elias Ratliff PA-C ACETAMINOPHEN 325 MG TABS Take 2 tablet by mouth every four hours as needed acetaminophen 26590263758 Elias Ratliff PA-C apixaban (Eliquis) 5 mg tablet Take 1 tablet by mouth twice a day Eliquis Elias Ratliff PA-C BETAMETHASONE DIPROPIONATE 0.05 % LOTN Apply to skin once a week betamethasone dipropionate 79126876368 Elias Ratliff PA-C BETAMETHASONE DIPROPIONATE 0.05 % LOTN Apply to skin once a week betamethasone dipropionate 66632960189 Elias Ratliff PA-C ALBUTEROL SULFATE HFA 108 (90 Base) MCG/ACT AERS Inhale 1-2 puff by mouth every six hours as needed albuterol sulfate 25329210261 Elias Ratliff PA-C PANTOPRAZOLE SODIUM 40 MG TBEC Take 1 tablet by mouth once a day pantoprazole 65150988532 Elias Ratliff PA-C ATORVASTATIN CALCIUM 20 MG TABS Take 1 tablet by mouth every night atorvastatin 62853190873 Elias Ratliff PA-C CARBIDOPA-LEVODO PA 25-100 MG TABS Take 1 tablet by mouth three times a day carbidopa-levodo pa 57341598439 Elias Ratliff PA-C apixaban (Eliquis) 5 mg tablet Take 1 Tablet (5 mg) by mouth two times daily. Eliquis QIEUSER QIEUSER apixaban (Eliquis) 5 mg tablet Take 1 Tablet (5 mg) by mouth two times daily. Eliquis QIEUSER QIEUSER PANTOPRAZOLE SODIUM 40 MG TBEC Take 1 Tablet (40 mg) by mouth once daily before a meal. pantoprazole 19740008718 QIEUSER QIEUSER KETOCONAZOLE 2 % SHAM Apply topically to affected area(s) every Monday. ketoconazole 69254873650 QIEUSER QIEUSER VITRON-C 65-125 MG TABS iron,carbonyl-vi tamin c 02785084989 QIEUSER QIEUSER DIGOXIN 250 MCG TABS Take 250 mcg by mouth once daily. digoxin 55168848703 QIEUSER QIEUSER BETAMETHASONE DIPROPIONATE 0.05 % LOTN Apply topically to affected area(s) every Monday. betamethasone dipropionate 92247581335 QIEUSER QIEUSER ATORVASTATIN CALCIUM 20 MG TABS Take 1 Tablet (20 mg) by mouth at bedtime. atorvastatin 03461422738 QIEUSER QIEUSER ALBUTEROL SULFATE HFA 108 (90 Base) MCG/ACT AERS Inhale 1-2 Puffs by mouth every 6 hours if needed (for allergy symptoms). albuterol sulfate 89579325589 QIEUSER QIEUSER ACETAMINOPHEN 325 MG TABS Take 2 Tablets (650 mg) by mouth every 4 hours if needed for Pain (For mild pain.). Max acetaminophen dose: 4000mg in 24 hrs. acetaminophen 27579993925 QIEUSER QIEUSER PANTOPRAZOLE SODIUM 40 MG TBEC Take 1 Tablet (40 mg) by mouth once daily before a meal. pantoprazole 18322983881 QIEUSER QIEUSER KETOCONAZOLE 2 % SHAM Apply topically to affected area(s) every Monday. ketoconazole 65022072453 QIEUSER QIEUSER VITRON-C 65-125 MG TABS iron,carbonyl-vi tamin c 08488436089 QIEUSER QIEUSER DIGOXIN 250 MCG TABS Take 250 mcg by mouth once daily. digoxin 28005820061 QIEUSER QIEUSER BETAMETHASONE DIPROPIONATE 0.05 % LOTN Apply topically to affected area(s) every Monday. betamethasone dipropionate 21014491593 QIEUSER QIEUSER ATORVASTATIN CALCIUM 20 MG TABS Take 1 Tablet (20 mg) by mouth at bedtime. atorvastatin 78995039542 QIEUSER QIEUSER apixaban (Eliquis) 5 mg tablet Take 1 Tablet (5 mg) by mouth two times daily. Eliquis QIEUSER QIEUSER apixaban (Eliquis) 5 mg tablet Take 1 Tablet (5 mg) by mouth two times daily. Eliquis QIEUSER QIEUSER ALBUTEROL SULFATE HFA 108 (90 Base) MCG/ACT AERS Inhale 1-2 Puffs by mouth every 6 hours if needed (for allergy symptoms). albuterol sulfate 57255225371 QIEUSER QIEUSER ACETAMINOPHEN 325 MG TABS Take 2 Tablets (650 mg) by mouth every 4 hours if needed for Pain (For mild pain.). Max acetaminophen dose: 4000mg in 24 hrs. acetaminophen 05298927571 QIEUSER QIEUSER Medications Administered No information available. [...] [Mass/volume] in Serum or Plasma by Electrophoresis [id number] * g/dL beta 2 g lobulin [id number] * g/dL beta 1 g lobulin ALPHA 2 GLOB * Alpha 2 globulin [Mass/volume] in Serum or Plasma by Electrophoresis ALPH-1 SR PE * g/dL alpha-1 globulin, serum, by protein electrophoresis ALBUM SER PE * g/dL albumin, serum by protein electrophoresis PROTEIN, TOT * g/dL Protein [Mass/volume] in Serum or Plasma Plan of Care Type Date Detail Appointment 01:40 PM Faustino See, [address], [address], [place], [address], Pending order Follow up Pending order Follow [...] CPT-G2211 Complex e/m visit add on 06/15/22 [id number] MRI-Brain W/O CPT-71620 MRI Brain W/O ORDERS ESR (Sedimentation Rate) [...]
[2024-12-16] MEDS: TRAMADOL HCL 50 MG TABLET 100 MG PO (00:59)
--- NOTE | 2024-12-16 01:30 | ED.BACK ---
HPI - Back Pain/Injury General Chief Complaint: Back Injury/Pain Stated Complaint: post fall complications Time Seen by Provider: 12/16/24 00:22 Source: patient and family Mode of arrival: ambulatory Limitations: no limitations History of Present Illness HPI Narrative: 69-year-old male presents to the emergency department for evaluation of back pain, inability to sleep. Patient was working out in his yd 4 days ago, trimming some bushes when he lost his balance and fell backwards onto his tailbone from standing height. He was able to get up on his own, has been ambulatory but with tenderness in the bilateral lower lumbar area. No new radiculopathy, numbness or tingling. No focal neurological changes. He has a history of lumbar spine disease and known herniated disc at the L4-L5 level. Patient reports that he did a prednisone burst about a month ago and did have some temporary improvement there. MRI from earlier this year is now reviewed as well. Patient is anticoagulated on Eliquis due to a history of AFib, not currently symptomatic. Has a history of stroke as well as a recent diagnosis of parkinsonism. And sounds like he was started on dopamine since his last primary care visit by the neurologist. Pain is isolated to the bilateral lower back area, band like. Does not seem to radiate, achy and constant, worse with movement. He tried taking Tylenol arthritis about 8 hours ago with some initial improvement in symptoms, but pain worsened overnight. No difficulty voiding, no numbness and tingling in the legs. No loss of bowel or bladder control. Past medical history reviewed notable for recent diagnosis of parkinsonism, stroke, AFib and lumbar spine disease. Allergies reviewed, no medications. His home meds are reviewed as well. Nonsmoker. ROS is notable for the back pain and poor sleep only, otherwise denies times 12 systems. Related Data Home Medications ?Medication ?Instructions ?Recorded ?Confirmed albuterol sulfate 90 mcg/actuation 2 inhalation PRN 09/15/21 10/16/24 aerosol inhaler acetaminophen 500 mg tablet 500 - 1,000 mg PO Q6H PRN 09/20/21 10/16/24 betamethasone dipropionate 0.05 % 1 topical .Every Monday09/24/21 10/16/24 lotion ketoconazole 2 % shampoo 1 topical .Every Monday09/24/21 10/16/24 multivitamin (Multiple Vitamins 1 tab PO QDAY 09/24/21 10/16/24 tablet) ferrous sulfate 325 mg (65 mg 325 mg PO QDAY 06/19/24 10/16/24 iron) tablet Previous Rx's ?Medication ?Instructions ?Recorded apixaban 5 mg tablet 5 mg PO BID #180 tabs 10/16/24 atorvastatin 20 mg tablet 20 mg PO QPM Hyperlipidemia #90 10/16/24 tabs digoxin 250 mcg (0.25 mg) tablet 250 mcg PO DAILY Atrial 10/16/24 Fibrillation #90 tabs pantoprazole 40 mg tablet,delayed 40 mg PO DAILY #90 tabs 10/16/24 release sertraline 50 mg tablet (Zoloft) 50 mg PO QDAY Depression #90 tabs 10/16/24 Allergies Allergy/AdvReac Type Severity Reaction Status Date / Time [place] wood dust Allergy Mild Rash Uncoded 10/16/24 09:05 No Known Drug Allergy Allergy Unknown Uncoded 10/16/24 09:05 [facility] Medical History Obstructive sleep apnea ?G47.33 - Obstructive sleep apnea (adult) (pediatric) (ICD-10) Intention tremor ?G25.2 - Other specified forms of tremor (ICD-10) TBI (traumatic brain injury) ?S06.9XAA - Unspecified intracranial injury with loss of consciousness status unknown, initial encounter (ICD-10) Depression ?F32.A - Depression, unspecified (ICD-10) Anemia ?D64.9 - Anemia, unspecified (ICD-10) Knee pain ?M25.569 - Pain in unspecified knee (ICD-10) History of traumatic brain injury (2002) ?Z87.820 - Personal history of traumatic brain injury (ICD-10) History of cerebrovascular accident (CVA) with residual deficit ?I69.30 - Unspecified sequelae of cerebral infarction (ICD-10) Surgical History History of bilateral inguinal hernia repair (04/28/14) ?Z98.890 - Other specified postprocedural states (ICD-10) ?Z87.19 - Personal history of other diseases of the digestive system (ICD-10) Social History What is your current living situation?: I presently have a place to live Problems where you live: no known problems In the past 12 months, utilities in danger of being shut off: no In past 12 months, lack of transportation kept you from medical appts, meetings, work, or getting things needed for daily living: no In the past 12 mos, have been you worried that your food would run out before you had money to buy more?: never true In the past 12 mos, the food you bought just didn't last and you didn't have money to buy more?: never true Smoking Status: Former smoker Do you use any of these nicotine containing products: None Second hand tobacco smoke exposure: No How often do you have a drink containing alcohol: never AUDIT-C Alcohol total score: 0 Non-prescribed substance use: denies use How often does anyone, including family, friends and others, physically hurt you: never How often does anyone, including family, friends and others, insult or talk down to you: never How often does anyone, including family, friends and others, threaten you with harm: never How often does anyone, including family, friends and others, scream or curse at you: never service: No Exam Const: Vital Signs, click to edit/add: Vital Signs - 24 hr 12/16/24 00:27 Temperature 98.1 F Pulse Rate [Left P ulse Oximeter] 62 Respiratory Rate 16 Blood Pressure [Ri ght Upper Arm] 169/81 H Pulse Oximetry 97 Oxygen Delivery Me thod Room Air Documenting provider has reviewed patient's vital signs: yes General appearance: well kempt Other: Parkinsonian affect but otherwise fair historian. does fill in important and helpful details. Appears well nourished and well hydrated. HENMT: Common normals: normocephalic, moist oral mucous membranes and oropharynx normal Head and scalp: normocephalic Face and sinus: normal facial exam Eye: Common normals: conjunctivae normal General eye: normal appearance of both eyes Conjunctiva: conjunctiva(e) normal Neck & C-Spine: General: normal visual inspection Resp: Common normals: normal respiratory effort and clear to auscultation bilaterally Effort & inspection: able to speak in complete sentences Auscultation: clear to auscultation bilaterally Cardio: Common normals: regular rate, regular rhythm, S1 normal heart sound, S2 normal heart sound and no murmurs Rate: regular rate Rhythm: regular rhythm Heart sounds: S1 normal and S2 normal Back & Pelvis: Common normals: thoracic and lumbar spine normal to inspection, no thoracic nor lumbar tenderness, thoraco-lumbar ROM normal and straight leg raise negative bilaterally Extremity: Common normals: full ROM and normal capillary refill Neuro: Common normals: moves all extremities and no focal motor deficits Motor exam: strength 5/5 throughout Other: Normal sensation in both legs, medial and lateral, proximal and distal. Psych: Appearance: well kempt Attitude: engaged Attention/concentration: attention grossly intact Insight: fair Judgement: fair Skin: Common normals: no rashes or lesions noted General skin exam: no rashes or lesions noted Course Course ED Course: 69-year-old male with fall from standing height onto tailbone, grass surface 4 days ago with pain and difficulty sleeping. Differential diagnosis including spinal hemorrhage, fracture, herniated disc, pulled muscle, amongst others. Low likelihood of significant hemorrhage due to duration of symptoms and lack of new neurological findings. Recommend x-ray to look for new fractures. Discussed risks and benefits of NSAIDs and prednisone with his Eliquis use. Recommended 40 mg of prednisone. Offered oxycodone, his less me know that this tends to ?make him crazy?. Instead I have ordered 100 mg of tramadol and we will see how he tolerates this medication. Await x-ray findings. Reevaluation(s) Time of Reevaluation #1: 01:55 Reevaluation #1: Patient is feeling better after the tramadol and prednisone, pain is worse with movement but tolerable at rest now. Counseled on findings of x-ray. Does have an L1 partial superior endplate fracture. It is certainly less than 50% of total vertebral height. Would not qualify for cement injections, bracing or other interventions. Counseled patient on this. He has been managing very well the last few days. I think he is safe to discharge home. I do think that a short course of prednisone would be helpful but I would like for him to only take this once daily. I have written the prednisone any may take it up to twice daily if he finds this very helpful. I have given him a prescription for the tramadol since he tolerated this well in the ED but have discussed that his primary means of pain control should be Tylenol. Rationale reviewed. Limited supply of Flexeril given for bedtime if he has difficulty sleeping as well. Primary care follow-up in about 10-14 days to ensure that things are improving and healing as would be expected. Consider additional referrals for pain control, PMR were additional physical therapy if needed. Reviewed indications to come back to the ED like sudden loss of bowel or bladder control, sudden weakness in the legs, other red flags. Written instructions provided. All questions answered. Computer printed copy of lateral x-ray film given to them for explanation of findings which they did find helpful. Vital Signs Vital signs: Initial Vital Signs Temperature 98.1 F 12/16/24 00:27 Temperature Source Temporal Artery Scan 12/16/24 00:27 Pulse Rate 62 12/16/24 00:27 Respiratory Rate 16 12/16/24 00:27 Blood Pressure 169/81 H 12/16/24 00:27 Blood Pressure Mean 110 H 12/16/24 00:27 Blood Pressure Position Sitting 12/16/24 00:27 Pulse Oximetry 97 12/16/24 00:27 Oxygen Delivery Method Room Air 12/16/24 00:27 Vital Signs Temperature 98.1 F 12/16/24 00:27 Pulse Rate 62 12/16/24 00:27 Respiratory Rate 16 12/16/24 00:27 Blood Pressure 169/81 H 12/16/24 00:27 Pulse Oximetry 97 12/16/24 00:27 Oxygen Delivery Method Room Air 12/16/24 00:27 Temperature 98.1 F 12/16/24 00:27 Pulse Rate 62 12/16/24 00:27 Respiratory Rate 16 12/16/24 00:27 Blood Pressure 169/81 H 12/16/24 00:27 Pulse Oximetry 97 12/16/24 00:27 Oxygen Delivery Method Room Air 12/16/24 00:27 Medications Administered Medications: Generic Name Dose Route Start Last Admin Trade Name Freq PRN Reason Stop Dose Admin Prednisone 40 mg 12/16/24 00:52 12/16/24 00:58 Prednisone 20 Mg Tablet PO 12/16/24 00:53 40 mg ONCE ONE Administration Tramadol HCl 100 mg 12/16/24 00:52 12/16/24 00:59 Tramadol Hcl 50 Mg Tablet PO 12/16/24 00:53 100 mg ONCE ONE Administration MDM - Back Pain/Injury Medical Records Attestation: I reviewed the patient's medical records. Imaging Data X-ray lumbar spine: Attestation: I have reviewed the pertinent imaging results. My impression: Partial anterior endplate compression fracture of L1, other chronic appearing degenerative changes Radiologist's impression: Impression: Acute, mild superior endplate compression fracture of L1. Dictated by Wilfredo Abdalla MD @ 12/16/2024 1:41:12 AM Discharge Plan Discharge Clinical Impression: Compression fracture of lumbosacral spine Patient Disposition: Home w/ Parent or Adult Condition: Improved Instructions: Vertebral Compression Fracture (ED) Additional Instructions: As we discussed, you have a small partial compression fracture in your lumbar spine, at the L1 level. This is different than your usual back troubles. This most likely happened with the fall on to your but that you described 4 days ago. These are very common for people as they age. Because this is just a partial compression fracture, there is no treatment that needs to be done. Braces or cement injections are not recommended. Most people feel much better within a couple of weeks but it is important that you are not lifting over 20 lb or performing any vigorous activity for the next few weeks. I do want you moving around, just not any heavy lifting. Symptoms will be better if you rest. For pain, I recommend Tylenol Arthritis 2 pills 3 times daily. This is the safest medication for you. I do recommend that we start some prednisone. Would like for you to take 1 pill once daily for 5 days. If symptoms are very bothersome, you may increase it to 1 pill 2 times daily for 5 days. Remember not to take it within 3 hours of bedtime as it will worsen insomnia. For severe pain that is not relieved by the Tylenol, I have given you a small supply of tramadol. You may take up to 1 pill every 6 hours. This is a narcotic medicine and should be used sparingly. I have also prescribed a muscle relaxant for you to try. It may seem a little strong, consider starting with just a half of a pill at bedtime if needed. For most people, this helps things relax and aids in sleep. It certainly will cause some drowsiness. Please call your primary care team to make a follow-up appointment in about 10-14 days. They will check in to see how your pain is doing and decide if further treatments or referrals are needed. You should come to the emergency room if you have severe sudden neurological changes or loss of bowel or bladder function or severe sudden weakness in the legs. Continue taking your Eliquis as prescribed. Activity Level: Light activity Discharge Diet: Regular Prescriptions: No Action ferrous sulfate 325 mg (65 mg iron) tablet 325 mg PO QDAY apixaban 5 mg tablet 5 mg PO BID Qty: 180 3RF Rx Instructions: Take 1 tablet in the morning and 1 tablet in the evening atorvastatin 20 mg tablet 20 mg PO QPM Qty: 90 0RF digoxin 250 mcg (0.25 mg) tablet 250 mcg PO DAILY Qty: 90 3RF pantoprazole 40 mg tablet,delayed release (DR/EC) 40 mg PO DAILY Qty: 90 3RF Rx Instructions: Take 1 tablet once daily before a meal sertraline [Zoloft] 50 mg tablet 50 mg PO QDAY Qty: 90 0RF albuterol sulfate 90 mcg/actuation HFA aerosol inhaler 2 inhalation PRN betamethasone dipropionate 0.05 % lotion 1 topical .Every Monday Rx Instructions: WEEKLY ON MONDAY ketoconazole 2 % shampoo 1 topical .Every Monday Rx Instructions: WEEKLY ON MONDAY multivitamin [Multiple Vitamins] Tablet 1 tab PO QDAY acetaminophen 500 mg tablet 500 - 1,000 mg PO Q6H PRN Follow Up/Referrals: John Garcia MD [Primary Care Provider, Internal Medicine] Stand Alone Forms: [employer] Info Instructions
== END 2024-12-16 02:15 | disposition home or self-care (01) ==
PROVIDERS: Emergency Provider Family Medicine; PCP Internal Medicine
DX: S32.018A Other fracture of first lumbar vertebra, initial encounter for closed fracture (principal); G20.C Parkinsonism, unspecified; Z79.01 Long term (current) use of anticoagulants; Z86.79 Personal history of other diseases of the circulatory system; Z86.73 Personal history of transient ischemic attack (TIA), and cerebral infarction without residual deficits; W01.0XXA Fall on same level from slipping, tripping and stumbling without subsequent striking against object, initial encounter; Y93.H2 Activity, gardening and landscaping; Y92.007 Garden or yard of unspecified non-institutional (private) residence as the place of occurrence of the external cause
CPT/HCPCS: 72100; 99284; A9270; J7512